=== PATIENT | female | born 1945 | race American Indian/Alaskan Native ===

== ENCOUNTER 2016-10-14 14:01 | Inpatient (IN) | payer BC, MEDICARE ==
[2016-10-14 14:01] VITALS: BMI 22.6
--- NOTE | 2016-10-14 14:26 | ED PDOC ---
HPI: Abdomen Time Seen by Provider: 10/14/16 14:11 Chief Complaint (Nursing): Abdominal Pain Chief Complaint (Provider): Abdominal Pain History Per: Patient History/Exam Limitations: no limitations Onset/Duration Of Symptoms: Days (x3) Current Symptoms Are (Timing): Still Present Quality Of Discomfort: Gas (In Abdomen) Associated Symptoms: Fever (subjetive), Back Pain, Chest Pain. denies: Chills, Nausea, Vomiting, Constipation Exacerbating Factors: denies: Cough Additional Complaint(s): 71 year old Claire Lyman presents to the ED with a chief complaint of chest pain that radiates to the abdomen and to the back that began 3 days ago. Associated symptoms include Abdominal gas, and a subjective fever. The patient admits to having lung cancer, and pelvic cancer as well as smoking since the age of 8 but denies any heart problems. The patient has had hip surgery and lung cancer surgery in the past and says the primary care physician is DR. arreguin. Past Medical History Reviewed: Historical Data, Nursing Documentation, Vital Signs Vital Signs: Last Vital Signs Temp 98.4 F 10/17/16 07:36 Pulse 79 10/17/16 07:36 Resp 20 10/17/16 07:36 BP 108/64 10/17/16 07:36 Pulse Ox 98 10/17/16 07:36 - Medical History PMH: Arthritis, Bronchitis, COPD, HTN, Malignancy (vaginal cancer, lung cancer) Denies: Diabetes, Hypercholesterolemia, Chronic Kidney Disease Other PMH: Lung cancer, "Pelvic cancer" - Surgical History Other surgeries: Lung cancer surgery, Hip surgery - Family History Family History: States: Unknown Family Hx - Social History Current smoker - smoking cessation education provided: Yes - Immunization History Hx Tetanus Toxoid Vaccination: No Hx Influenza Vaccination: No Hx Pneumococcal Vaccination: No - Home Medications Home Medications: Ambulatory Orders Medication Instructions Recorded Albuterol Sulfate [Proair Hfa] 0.09 mg IH Q4 PRN 07/27/16 Albuterol/Ipratropium [Duoneb 3 3 ml IH TID 07/27/16 mg/0.5 mg (3 ml) UD] oxyCODONE/Acetaminophen [Percocet 2 tab PO Q6 PRN #30 tab 08/03/16 5/325 mg Tab] - Allergies Allergies/Adverse Reactions: Allergies Allergy/AdvReac Type Severity Reaction Status Date / Time seasonal Allergy CONGESTION Uncoded 12/12/14 01:29 Review of Systems ROS Statement: Except As Marked, All Systems Reviewed And Found Negative Constitutional: Positive for: Fever (subjective) Eyes: Positive for: Vision Change ENT: Positive for: Other Cardiovascular: Positive for: Chest Pain Respiratory: Positive for: Sputum, Wheezing (expiatory ). Negative for: Shortness of Breath Gastrointestinal: Positive for: Abdominal Pain. Negative for: Nausea, Vomiting Genitourinary Female: Negative for: Hematuria, Vaginal Bleeding Musculoskeletal: Positive for: Back Pain Physical Exam - Reviewed Nursing Documentation Reviewed: Yes Vital Signs Reviewed: Yes - Physical Exam Appears: Positive for: Uncomfortable Skin: Positive for: Normal Color, Warm, Dry Eye Exam: Positive for: Normal appearance, EOMI, PERRL Neck: Positive for: Normal, Painless ROM, Supple Cardiovascular/Chest: Positive for: Regular Rate, Rhythm. Negative for: Chest Non Tender Respiratory: Positive for: Wheezing (Expiatory) Gastrointestinal/Abdominal: Positive for: Tenderness (Diffused) Back: Positive for: L CVA Tenderness (slighter on the left side), R CVA Tenderness Extremity: Positive for: Normal ROM Neurologic/Psych: Positive for: Alert, Oriented - Laboratory Results Result Diagrams: 10/17/16 06:25 10/17/16 06:25 - ECG O2 Sat by Pulse Oximetry: 98 (RA) Pulse Ox Interpretation: Normal Medical Decision Making Medical Decision Makin: Initial Impression:Abdominal pain with differentials of Flatulence and Constipation. Initial Plan: * Ekg * Lipase * Comp metabolic panel * Troponin I * ED U Dip * CBC with differentials * RAD * Dicyclomine Bentyl 20mg PO * Famotidine Pepcid 20 mg * Ketorolac Toradol 30mg * IV insertion * Re-Evaluation ~ Scribe Attestation: Documented by Leonard Pressley training under Steff Ferrer, acting as a scribe for Dr. Koenig. Provider Scribe Attestation: All medical record entries made by the Scribe were at my direction and personally dictated by me. I have reviewed the chart and agree that the record accurately reflects my personal performance of the history, physical exam, medical decision making, and the department course for this patient. I have also personally directed, reviewed, and agree with the discharge instructions and disposition. Disposition - Clinical Impression Clinical Impression: Cholecystitis - Patient ED Disposition Is Patient to be Admitted: Transfer of Care - Disposition Disposition: Transfer of Care Disposition Time: 15:00 Condition: STABLE Patient Signed Over To: Pat Cerrato Present On Arrival: None
[2016-10-14 15:26] LABS: BASO # 0.1 K/uL (0.0-0.2); BASO % 0.5 % (0.0-2.0); EOS % 0.2 % (0.0-4.0); LYMPH # 1.1 K/uL (1.0-4.3); LYMPH % 10.3 % (20.0-40.0); MEAN CELL VOLUME 92.1 fl (81.0-99.0); MEAN CORPUSCULAR HEMOGLOBIN 30.1 pg (27.0-31.0); MEAN CORPUSCULAR HGB CONC 32.7 g/dL (33.0-37.0); MEAN PLATELET VOLUME 9.2 fl (7.2-11.7); MONO % 9.4 % (0.0-10.0); NEUT # 8.7 K/uL (1.8-7.0); NEUT % 79.6 % (50.0-75.0); WHITE BLOOD COUNT 10.9 K/uL (4.8-10.8)
[2016-10-14 15:34] LABS: ALB/GLOB RATIO 1.2 (1.0-2.1); ALKALINE PHOSPHATASE 127 U/L (38-126); ALT/SGPT 45 U/L (9-52); AST/SGOT 18 U/L (14-36); BILIRUBIN,TOTAL 1.2 mg/dl (0.2-1.3); BLOOD UREA NITROGEN 6 mg/dl (7-17); CALCIUM 9.8 mg/dL (8.4-10.2); CARBON DIOXIDE 24 mmol/L (22-30); CHLORIDE 103 mmol/L (98-107); GFR AFRICAN-AMERICAN > 60; GLUCOSE,RANDOM 105 mg/dL (65-105); LIPASE 43 U/L (23-300); POTASSIUM 3.9 MMOL/L (3.6-5.0); SODIUM 142 mmol/l (132-148); TOTAL PROTEIN 7.4 G/DL (6.3-8.2)
--- NOTE | 2016-10-14 15:47 | RAD ---
PROCEDURE: Radiographs of the chest and abdomen (obstructive series) HISTORY: Abdominal bloating/pain for 3 days COMPARISON: No prior. TECHNIQUE: AP radiograph of the chest, with upright and supine radiographs of the abdomen. FINDINGS: CHEST: Lungs: The lungs are hyperinflated and there is peribronchial thickening with chronic changes in both lungs. There are fibrotic changes in the left upper lobe. . Cardiovascular: Normal size heart. No pulmonary vascular congestion. Pleura: No pleural fluid. No pneumothorax. Other findings: None. ABDOMEN AND PELVIS: Bowel: There are small air-fluid levels in the right lower quadrant. No evidence of bowel dilatation. Free air: None. Bones: Status post left hip arthroplasty. Other findings: There are multiple surgical clips in the lower abdomen and pelvis. IMPRESSION: COPD. Small air-fluid levels in the right lower quadrant could represent enteritis. No evidence of bowel obstruction.
[2016-10-14] MEDS ORDERED: Iohexol 240 (50 ml) PO STA (16:02)
--- NOTE | 2016-10-14 16:05 | ED PDOC ---
- Laboratory Results Result Diagrams: 10/15/16 06:05 10/15/16 06:05 - ECG O2 Sat by Pulse Oximetry: 98 (RA) Medical Decision Making Medical Decision Making: Time: 1500 Patient signed out by Dr. Koenig pending labs, Xray and re-evaluation Time: 1600 Plan: -- ED obs -- CT-abdomen Scribe Attestation: Documented by Steff Ferrer acting as a scribe for Pat Cerrato MD Provider Scribe Attestation: All medical record entries made by the Scribe were at my direction and personally dictated by me. I have reviewed the chart and agree that the record accurately reflects my personal performance of the history, physical exam, medical decision making, and the department course for this patient. I have also personally directed, reviewed, and agree with the discharge instructions and disposition. Disposition - Clinical Impression Clinical Impression: Cholecystitis - POA Present On Arrival: None - Disposition Disposition: Admitted as In-Patient Disposition Time: 19:57 Condition: STABLE ED OBSERVATION Date of observation admission: 10/14/16 Time of observation admission: 16:00 - Observation admission statement Patient is being placed in observation because:: Continued abdominal pain - Goals of Observation Goals of observation are:: Resolution of pain - Progress Note Progress Note: 10/14/16 18:[address] results. 10/14/16 19:29 CT AP IMPRESSION: Enterocolitis with ileus; gastric wall thickening, underdistention versus true thickening; distended gallbladder with pericholecystic fluid/edema suggest cholecystitis; prior granulomatous disease; hysterectomy 10/14/16 19:57 Spoke to Landen Chin, pt NPO after midnight.
[2016-10-14] MEDS ORDERED: Iohexol 240 (50 ml) ONE (16:30)
[2016-10-14] MEDS ORDERED: Sodium Chloride 0.9% 50 ML IV ONE (18:00)
[2016-10-14] MEDS ORDERED: Iohexol 300 100 ML IJ ONE (18:00)
--- NOTE | 2016-10-14 19:27 | CT ---
EXAM: CT Abdomen and Pelvis With Intravenous Contrast CLINICAL HISTORY: 71 years old, female; Pain; Abdominal pain; Generalized; Additional info: Gen abd pain, bloating TECHNIQUE: Axial computed tomography images of the abdomen and pelvis with intravenous contrast. This CT exam was performed using one or more of the following dose reduction techniques: automated exposure control, adjustment of the mA and/or kV according to patient size, and/or use of iterative reconstruction technique. Coronal and sagittal reformatted images were created and reviewed. CONTRAST: 95 mL of OMNI administered intravenously. EXAM DATE/TIME: 10/14/2016 4:02 PM COMPARISON: CR - HIP W/WO PELVIS MIN 4V LT 08/14/2015 12:12:14 PM FINDINGS: Lower thorax: There is normal. There is prominence of markings at the lung bases. There is a calcified granuloma in the right lower lobe. There is atelectasis and scarring at the lung base. There is a small hiatal hernia. ABDOMEN: Liver: There are granulomas in the liver. There is a 4.2 cm cyst in the right lobe of the liver Gallbladder and bile ducts: Gallbladder is distended centimeters in length. There is pericholecystic fluid/edema. Common bile duct is unremarkable. Pancreas: Pancreas is mildly atrophic. Spleen: unremarkable Adrenals: Right adrenal is unremarkable. There is a small left adrenal nodule. Kidneys and ureters: There is a left renal cyst. There is a low-attenuation right renal lesions too small to characterize. Kidneys and ureters are otherwise unremarkable. Stomach and bowel: Stomach is incompletely distended which accentuates the gastric wall.Bowel rotation is normal. There is mild jejunal wall thickening. There are mildly distended small bowel loops in the left abdomen. There is no obstruction. There is distal ileal wall thickening with adjacent inflammation.Appendix is unremarkable. There is moderate stool in the right colon. There is diffuse transverse colon wall thickening. Sigmoid is collapsed which limits evaluation. Appendix: See stomach and bowel PELVIS: Bladder: Bladder is almost empty. Reproductive: Uterus is absent. There are no adnexal masses. ABDOMEN and PELVIS: Intraperitoneal space: There is no free air. There is moderate free fluid in the cul-de-sac. Retroperitoneal space: There are multiple surgical clips in the retroperitoneum. Bones/joints: There is a left hip prosthesis with streak artifact. There is mild degenerative change in the spine and right hip Soft tissues: unremarkable Vasculature: There are vascular calcifications. Lymph nodes: There is shotty para-aortic adenopathy. IMPRESSION: Enterocolitis with ileus; gastric wall thickening, underdistention versus true thickening; distended gallbladder with pericholecystic fluid/edema suggest cholecystitis; prior granulomatous disease; hysterectomy Additional findings as described above.
[2016-10-14] MEDS ORDERED: Piperacillin/Tazobact 4.5 GM in Sodium Chloride 0.9% 100 ML IVPB STA (19:48)
[2016-10-14] MEDS ORDERED: Dextrose 5%/0.45% NS 1,000 ML IV SCH (23:00)
[2016-10-14] MEDS: Albuterol-Ipratrop 3 mg / 0.5 (3 ml) UD IH SCH (23:37)
[2016-10-15] MEDS: metroNIDAZOLE 500mg/100ml NS 100 ML IVPB SCH ×3 (00:23→10:06)
[2016-10-15] MEDS: Ciprofloxacin 400mg/200ml D5W 200 ML IVPB SCH ×2 (01:42→08:46)
[2016-10-15] MEDS: Albuterol-Ipratrop 3 mg / 0.5 (3 ml) UD IH SCH ×6 (04:12→23:44)
[2016-10-15] MEDS: Piperacillin/Tazobact 3.375 GM in Sodium Chloride 0.9% 100 ML IVPB SCH ×4 (04:19→22:58)
[2016-10-15 07:36] LABS: MEAN CELL VOLUME 92.4 fl (81.0-99.0); MEAN CORPUSCULAR HEMOGLOBIN 30.6 pg (27.0-31.0); MEAN CORPUSCULAR HGB CONC 33.1 g/dL (33.0-37.0); RED CELL DISTRIBUTION WIDTH 13.5 % (11.5-14.5); WHITE BLOOD COUNT 12.5 K/uL (4.8-10.8)
--- NOTE | 2016-10-15 07:38 | CARD ---
APPROVED REPORT EKG Measurement Heart [id number] <Conclusion> Normal sinus rhythm Normal ECG
[2016-10-15 07:40] LABS: ALB/GLOB RATIO 1.2 (1.0-2.1); ALKALINE PHOSPHATASE 120 U/L (38-126); ALT/SGPT 33 U/L (9-52); AMYLASE 80 U/L (30-110); AST/SGOT 18 U/L (14-36); BILIRUBIN,TOTAL 1.7 mg/dl (0.2-1.3); BLOOD UREA NITROGEN 9 mg/dl (7-17); CALCIUM 9.7 mg/dL (8.4-10.2); CARBON DIOXIDE 20 mmol/L (22-30); CHLORIDE 106 mmol/L (98-107); GFR AFRICAN-AMERICAN > 60; GLUCOSE,RANDOM 112 mg/dL (65-105); LIPASE 28 U/L (23-300); POTASSIUM 3.6 MMOL/L (3.6-5.0); SODIUM 143 mmol/l (132-148); TOTAL PROTEIN 7.3 G/DL (6.3-8.2)
--- NOTE | 2016-10-15 08:04 | CP.PCM.CON ---
<LennonLucy mason - Last Filed: 10/15/16 08:00> History of Present Illness - History of Present Illness History of Present Illness: General Surgery - Dr. Guzman 71yo F w/ hx of HTN, COPD, Lung Ca s/p Lobectomy, Pelvic Ca s/p Hysterectomy, and recent L hip replacement, who presents w/ RUQ abdominal pain x3 days. Pt states the pain started 3 days ago, describes it as located in the RUQ abdomen, radiating to the back, constant sharp/stabbing pain. Pt denies any inciting factors and nothing seemed to make the pain better or worse. Pt states this is the first time she's experienced this pain. She had mild nausea initially, no vomiting. Pt denies any Diarrhea, Constipation, Fevers/Chills, SOB/Chest pain, Dysuria, Hematuria. PMH: HTN, COPD, Lung Ca, Pelvic Ca PSH: Hysterectomy, Left lobectomy, L hip replacement Current Smoker NKDA Pt had CT abdomen pelvis which shows a distended GB with pericholecystic fluid and thickened wall, with additional signs of enterocolitis. Surgery was consulted to evaluate for cholecystitis. Past Patient History - Past Medical History & Family History Past Medical History?: Yes - Past Social History Smoking Status: Former Smoker - CARDIAC Hx Hypercholesterolemia: No Hx Hypertension: Yes - PULMONARY Hx Bronchitis: Yes Hx Chronic Obstructive Pulmonary Disease (COPD): Yes - NEUROLOGICAL Hx Neurological Disorder: No - HEENT Hx HEENT Problems: Yes (Rhinitis) - RENAL Hx Chronic Kidney Disease: No - ENDOCRINE/METABOLIC Hx Diabetes Mellitus Type 2: No - HEMATOLOGICAL/ONCOLOGICAL Hx Blood Disorders: Yes - INTEGUMENTARY Hx Dermatological Problems: No - MUSCULOSKELETAL/RHEUMATOLOGICAL Hx Falls: No - GASTROINTESTINAL Hx Gastrointestinal Disorders: Yes Hx Gastroesophageal Reflux: Yes - GENITOURINARY/GYNECOLOGICAL Hx Genitourinary Disorders: Yes Hx Ovarian Cancer: Yes - PSYCHIATRIC Hx Substance Use: No - SURGICAL HISTORY Hx Surgeries: Yes Hx Abdominal Aortic Aneurysm Repair: No Hx Hysterectomy: Yes Hx Pulmonary Surgery: Yes (left lungs sx removed) - ANESTHESIA Hx Anesthesia: Yes Hx Anesthesia Reactions: No Hx Malignant Hyperthermia: No Meds Allergies/Adverse Reactions: Allergies Allergy/AdvReac Type Severity Reaction Status Date / Time seasonal Allergy CONGESTION Uncoded 12/12/14 01:29 - Medications Medications: Current Medications Albuterol/Ipratropium (Duoneb 3 Mg/0.5 Mg (3 Ml) Ud) 3 ml IH RQ4 [facility] Last Admin: 10/15/16 04:12 Dose: 3 ml Hydromorphone HCl (Dilaudid) 0.5 mg IVP Q3H PRN PRN Reason: Pain, moderate (4-7) Ciprofloxacin (Cipro 400mg/200ml Dsw) 200 mls @ 200 mls/hr IVPB Q12 [facility] Last Admin: 10/15/16 01:42 Dose: 200 mls/hr Dextrose/Sodium Chloride (Dextrose 5%/0.45% Ns 1000 Ml) 1,000 mls @ 80 mls/hr IV .[id number] [facility] Stop: 10/15/16 23:01 Last Admin: 10/14/16 23:39 Dose: 80 mls/hr Metronidazole (Flagyl 500mg/100ml Ns) 100 mls @ 100 mls/hr IVPB Q8 [facility] Last Admin: 10/15/16 00:23 Dose: 100 mls/hr Piperacillin Sod/Tazobactam (Sod 3.375 gm/ Sodium Chloride) 100 mls @ 100 mls/ hr IVPB Q6 [facility] Last Admin: 10/15/16 04:19 Dose: 100 mls/hr Ondansetron HCl (Zofran Inj) 4 mg IVP Q4 PRN PRN Reason: Nausea/Vomiting Physical Exam - Constitutional Appears: No Acute Distress - Head Exam Head Exam: ATRAUMATIC, NORMAL INSPECTION, NORMOCEPHALIC - Eye Exam Eye Exam: Normal appearance - Respiratory Exam Respiratory Exam: NORMAL BREATHING PATTERN. absent: Respiratory Distress - GI/Abdominal Exam GI & Abdominal Exam: Distended (mild), Guarding, Soft, Tenderness (RUQ). absent : Firm, Rebound, Rigid - Neurological Exam Neurological exam: Alert, Oriented x3 - Psychiatric Exam Psychiatric exam: Normal Affect, Normal Mood - Skin Skin Exam: Dry, Intact Results - Vital Signs Recent Vital Signs: Last Vital Signs Temp 98.6 F 10/15/16 07:37 Pulse 88 10/15/16 07:37 Resp 18 10/15/16 07:37 BP 118/71 10/15/16 07:37 Pulse Ox 100 10/15/16 07:37 - Labs Result Diagrams: 10/15/16 06:05 10/15/16 06:05 Labs: Laboratory Results - last 24 hr 10/14/16 10/15/16 15:18 06:05 WBC 10.9 H 12.5 H RBC 4.45 4.22 Hgb 13.4 12.9 Hct 41.0 39.0 MCV 92.1 D 92.4 MCH 30.1 30.6 MCHC 32.7 L 33.1 RDW 14.0 13.5 Plt Count 199 194 MPV 9.2 Neut % (Auto) 79.6 H Lymph % (Auto) 10.3 L [place] % (Auto) 9.4 Eos % (Auto) 0.2 Baso % (Auto) 0.5 Neut # 8.7 H Lymph # 1.1 [place] # 1.0 H Eos # 0.0 Baso # 0.1 PT 11.7 H INR 1.13 H APTT 32.0 Sodium 142 143 Potassium 3.9 3.6 Chloride 103 106 Carbon Dioxide 24 20 L Anion Gap 19 21 H BUN 6 L 9 Creatinine 0.7 0.9 Est GFR ( Amer) > 60 > 60 Est GFR (Non-Af Amer) > 60 > 60 Random Glucose 105 112 H Calcium 9.8 9.7 Total Bilirubin 1.2 1.7 H AST 18 18 ALT 45 33 Alkaline Phosphatase 127 H D 120 Troponin I < 0.0120 Total Protein 7.4 7.3 Albumin 4.1 3.9 Globulin 3.3 3.4 Albumin/Globulin Ratio 1.2 1.2 Amylase 80 Lipase 43 28 - Imaging and Cardiology CT scan - abdomen Status: Image reviewed by me, Report reviewed by me Assessment & Plan - Assessment and Plan (Free Text) Assessment: 71 yo F w/ hx Lung and pelvic ca, COPD, here with persistent RUQ pain and CT findings suggestive of cholecystitis -F/U Abdominal U/S -Maintain NPO, IVF -IV Abx -Pain control -May need cholecystectomy this admission D/W Dr. Megan Lennon PGY2 <Derrick Guzman - Last Filed: 10/15/16 10:17> History of Present Illness - History of Present Illness History of Present Illness: Patient was seen and examined at the bedside. Agree with resident's note above. Meds - Medications Medications: Current Medications Albuterol/Ipratropium (Duoneb 3 Mg/0.5 Mg (3 Ml) Ud) 3 ml IH RQ4 [facility] Last Admin: 10/15/16 04:12 Dose: 3 ml Hydromorphone HCl (Dilaudid) 0.5 mg IVP Q3H PRN PRN Reason: Pain, moderate (4-7) Last Admin: 10/15/16 09:50 Dose: 0.5 mg Piperacillin Sod/Tazobactam (Sod 3.375 gm/ Sodium Chloride) 100 mls @ 100 mls/ hr IVPB Q6 [facility] Last Admin: 10/15/16 10:08 Dose: 100 mls/hr Sodium Chloride (Sodium Chloride 0.9%) 1,000 mls @ 125 mls/hr IV .Q8H [facility] Stop: 10/16/16 10:16 Last Admin: 10/15/16 10:15 Dose: 125 mls/hr Ondansetron HCl (Zofran Inj) 4 mg IVP Q4 PRN PRN Reason: Nausea/Vomiting Pantoprazole Sodium (Protonix Inj) 40 mg IVP DAILY [facility] Results - Vital Signs Recent Vital Signs: Last Vital Signs Temp 98.6 F 10/15/16 07:37 Pulse 88 10/15/16 07:37 Resp 18 10/15/16 07:37 BP 118/71 10/15/16 07:37 Pulse Ox 100 10/15/16 07:37 - Labs Result Diagrams: 10/15/16 06:05 10/15/16 06:05 Labs: Laboratory Results - last 24 hr 10/14/16 10/15/16 15:18 06:05 WBC 10.9 H 12.5 H RBC 4.45 4.22 Hgb 13.4 12.9 Hct 41.0 39.0 MCV 92.1 D 92.4 MCH 30.1 30.6 MCHC 32.7 L 33.1 RDW 14.0 13.5 Plt Count 199 194 MPV 9.2 Neut % (Auto) 79.6 H Lymph % (Auto) 10.3 L [place] % (Auto) 9.4 Eos % (Auto) 0.2 Baso % (Auto) 0.5 Neut # 8.7 H Lymph # 1.1 [place] # 1.0 H Eos # 0.0 Baso # 0.1 PT 11.7 H INR 1.13 H APTT 32.0 Sodium 142 143 Potassium 3.9 3.6 Chloride 103 106 Carbon Dioxide 24 20 L Anion Gap 19 21 H BUN 6 L 9 Creatinine 0.7 0.9 Est GFR ( Amer) > 60 > 60 Est GFR (Non-Af Amer) > 60 > 60 Random Glucose 105 112 H Calcium 9.8 9.7 Total Bilirubin 1.2 1.7 H AST 18 18 ALT 45 33 Alkaline Phosphatase 127 H D 120 Troponin I < 0.0120 Total Protein 7.4 7.3 Albumin 4.1 3.9 Globulin 3.3 3.4 Albumin/Globulin Ratio 1.2 1.2 Amylase 80 Lipase 43 28 Assessment & Plan - Assessment and Plan (Free Text) Assessment: 71 y.o. female with cholecystitis Plan: - Keep NPO - IV fluids to 15 ml/hr - Continue antibiotics - Pain control - Plan for cholecystectomy tomorrow
--- NOTE | 2016-10-15 08:36 | US ---
HISTORY: Abdominal pain, right upper quadrant pain. Cholecystitis suspected COMPARISON: October 14, 2016. CT abdomen and pelvis. Summary of findings on the comparison examination: Distended gallbladder with pericholecystic fluid suggest cholecystitis. TECHNIQUE: Sonographic evaluation of the abdomen. FINDINGS: LIVER: Measures 15.5 cm. Patent portal vein. Portal venous flow: Hepatopetal. Unremarkeable echogenicity of the liver parenchyma. No mass. No intrahepatic bile duct dilatation.Incidental finding(s): Cyst right hepatic lobe 4 cm. GALLBLADDER: Distended gallbladder, gallbladder wall thickening. Gallstones identified. Positive sonographic Menendez's sign. Pericholecystic fluid noted. COMMON BILE DUCT: Measures 4.7 mm. No stones. No dilatation. PANCREAS: Obscured by overlying bowel gas. Non diagnostic assessment of the pancreas. 9.8 x 5.2cm. Normal echogenicity. No calculus, mass, or hydronephrosis. LEFT KIDNEY: Measures 4.6 x 11.2cm. Normal echogenicity. No calculus, mass, or hydronephrosis.Incidental finding(s): Upper pole cyst 2.4 cm. SPLEEN: Normal in size and contour. No mass. AORTA: No aneurysmal dilatation. IVC: Unremarkable. OTHER FINDINGS: None. IMPRESSION: Cholelithiasis/sonographic findings indicative of acute cholecystitis.
--- NOTE | 2016-10-15 09:11 | RAD ---
HISTORY: Preop. COMPARISON: 07/31/2016 and 07/27/2016. Serial chest radiographs. 08/26/2013 CT thorax TECHNIQUE: Chest PA and lateral FINDINGS: LUNGS: Stable left upper lobe scarring. Findings are primarily peripheral based. PLEURA: No significant pleural effusion identified. No pneumothorax apparent. CARDIOVASCULAR: No radiographic findings to suggest acute or significant cardiovascular disease. OSSEOUS STRUCTURES: No significant abnormalities. VISUALIZED UPPER ABDOMEN: Normal. OTHER FINDINGS: None. IMPRESSION: No active disease. No significant interval change compared to the prior examination(s). This includes serial chest radiographs and CT of the thorax performed 08/26/2013.
[2016-10-15] MEDS: Sodium Chloride 0.9% 1,000 ML IV SCH ×7 (10:15→13:32)
[2016-10-15] MEDS: methylPREDNISolone 40 MG in Sodium Chloride 0.9% 50 ML IVPB SCH ×3 (13:45→21:39)
--- NOTE | 2016-10-15 14:52 | CP.PCM.HP ---
History of Present Illness - History of Present Illness History of Present Illness: CC: Abdominal pain. 71 y/o F, brought to ER [facility] by EMS due to Abdominal pain, onset 2-3 days SCALEMAKER with no relief. Pt came c/o of Abdominal pain RUQ, constant, stabbing, severe intensity of 9:10 , radiated to R back and lower extremity, associated to nausea and vomiting x 3 days SCALEMAKER. Worsening symptom: BM 2 weeks ago with small amount of bright Red color. Worsening factor: Poor po intake, lack of appetite. Pt denied: Diarrhea, fever, chills, urinary symptoms, CP, SOB, syncope, dizziness, sick contact, recent travel. PMHx: Chronic L hip, R-L knee, L-S pain. Hx of Lung Ca (MARIBELL Lobectomy Tx with Radiation and Chemo), Hx of Ovarian CA s/p ANGELO-BSO, s/p L Hip Arthroplasty , COPD 2nd to heavy smoker, O/A. EKG shows: Normal sinus rhythm. OB Series: No evidence of Lower obstruction, COPD. CT Abd/Pelv= Suggestive x Cholecystitis. Abdominal U-S showed Acute Cholecystitis. Present on Admission - Present on Admission Any Indicators Present on Admission: No Review of Systems - Constitutional Constitutional: Weakness - EENT Eyes: Other (negative) Ears: Other (negative) Nose/Mouth/Throat: Other (negative) - Cardiovascular Cardiovascular: Other (negative) - Respiratory Respiratory: Other (negative) - Gastrointestinal Gastrointestinal: Abdominal Pain, Nausea, Vomiting - Genitourinary Genitourinary: Other (negative) - Musculoskeletal Musculoskeletal: Arthralgias, Back Pain, Radiating Pain into Limb - Integumentary Integumentary: Other (negative) - Neurological Neurological: Other (negative) - Psychiatric Psychiatric: Other (negative) - Endocrine Endocrine: Other (negative) Past Patient History - Past Medical History & Family History Past Medical History?: Yes Pertinent Family History: Unknown - Past Social History Smoking Status: Former Smoker Alcohol: None Drugs: Denies Home Situation {Lives}: With Family - CARDIAC Hx Cardiac Disorders: No Hx Hypercholesterolemia: No Hx Hypertension: Yes - PULMONARY Hx Respiratory Disorders: Yes Hx Bronchitis: Yes Hx Chronic Obstructive Pulmonary Disease (COPD): Yes Hx Lung Cancer: Yes (MARIBELL) - NEUROLOGICAL Hx Neurological Disorder: No - HEENT Hx HEENT Problems: Yes (Rhinitis) - RENAL Hx Chronic Kidney Disease: No - ENDOCRINE/METABOLIC Hx Endocrine Disorders: No Hx Diabetes Mellitus Type 2: No - HEMATOLOGICAL/ONCOLOGICAL Hx Blood Disorders: Yes - INTEGUMENTARY Hx Dermatological Problems: No - MUSCULOSKELETAL/RHEUMATOLOGICAL Hx Musculoskeletal Disorders: Yes Hx Arthritis: Yes Hx Back Pain: Yes Hx Falls: No Hx Osteoarthritis: Yes - GASTROINTESTINAL Hx Gastrointestinal Disorders: Yes Hx Gastroesophageal Reflux: Yes - GENITOURINARY/GYNECOLOGICAL Hx Genitourinary Disorders: Yes Hx Ovarian Cancer: Yes - PSYCHIATRIC Hx Substance Use: No - SURGICAL HISTORY Hx Surgeries: Yes Hx Abdominal Aortic Aneurysm Repair: No Hx Hysterectomy: Yes Hx Pulmonary Surgery: Yes (left lungs sx removed) - ANESTHESIA Hx Anesthesia: Yes Hx Anesthesia Reactions: No Hx Malignant Hyperthermia: No Meds Allergies/Adverse Reactions: Allergies Allergy/AdvReac Type Severity Reaction Status Date / Time seasonal Allergy CONGESTION Uncoded 12/12/14 01:29 Physical Exam - Constitutional Appears: No Acute Distress, Chronically Ill - Head Exam Head Exam: NORMAL INSPECTION - Eye Exam Eye Exam: PERRL - ENT Exam ENT Exam: Normal Oropharynx - Neck Exam Neck exam: Positive for: Normal Inspection - Respiratory Exam Respiratory Exam: Decreased Breath Sounds (at bases) Additional comments: L thoracotomy healed scar - Cardiovascular Exam Cardiovascular Exam: REGULAR RHYTHM - GI/Abdominal Exam GI & Abdominal Exam: Guarding (LUQ), Normal Bowel Sounds, Tenderness (LUQ). absent: Rebound Additional comments: Healed lower midline surgical scar - Extremities Exam Extremities exam: Positive for: normal inspection. Negative for: pedal edema Additional comments: Healed L Hip surgical scar - Back Exam Back exam: tenderness (L-S) - Neurological Exam Neurological exam: Alert, Oriented x3 Additional comments: No motor sensory deficit. - Psychiatric Exam Psychiatric exam: Normal Mood - Skin Skin Exam: Warm Results - Vital Signs Recent Vital Signs: Last Vital Signs Temp 98.6 F 10/15/16 07:37 Pulse 88 10/15/16 07:37 Resp 18 10/15/16 07:37 BP 118/71 10/15/16 07:37 Pulse Ox 98 10/15/16 14:32 reviewed Domingo - Labs Result Diagrams: 10/15/16 06:05 10/15/16 06:05 Labs: Laboratory Results - last 24 hr 10/14/16 10/15/16 15:18 06:05 WBC 10.9 H 12.5 H RBC 4.45 4.22 Hgb 13.4 12.9 Hct 41.0 39.0 MCV 92.1 D 92.4 MCH 30.1 30.6 MCHC 32.7 L 33.1 RDW 14.0 13.5 Plt Count 199 194 MPV 9.2 Neut % (Auto) 79.6 H Lymph % (Auto) 10.3 L [place] % (Auto) 9.4 Eos % (Auto) 0.2 Baso % (Auto) 0.5 Neut # 8.7 H Lymph # 1.1 [place] # 1.0 H Eos # 0.0 Baso # 0.1 PT 11.7 H INR 1.13 H APTT 32.0 Sodium 142 143 Potassium 3.9 3.6 Chloride 103 106 Carbon Dioxide 24 20 L Anion Gap 19 21 H BUN 6 L 9 Creatinine 0.7 0.9 Est GFR ( Amer) > 60 > 60 Est GFR (Non-Af Amer) > 60 > 60 Random Glucose 105 112 H Calcium 9.8 9.7 Total Bilirubin 1.2 1.7 H AST 18 18 ALT 45 33 Alkaline Phosphatase 127 H D 120 Troponin I < 0.0120 Total Protein 7.4 7.3 Albumin 4.1 3.9 Globulin 3.3 3.4 Albumin/Globulin Ratio 1.2 1.2 Amylase 80 Lipase 43 28 reviewed J.P. - EKG Data EKG comments: reviewed J.P. - Impressions Impression: Abd. CLAYTON Eli Reviewed J.P. - Imaging and Cardiology Chest x-ray Status: Report reviewed by me (J.P.) CT scan - abdomen Status: Report reviewed by me (J.P.) CT scan - pelvis Status: Report reviewed by me (J.P.) US - abdomen Status: Report reviewed by me (J.P.) Assessment & Plan (1) Acute cholecystitis Status: Acute Priority: High (2) Hx of cancer of lung Status: Chronic Priority: High (3) COPD (chronic obstructive pulmonary disease) Status: Chronic Priority: Medium (4) Chronic lumbar radiculopathy Status: Chronic Priority: High - Assessment and Plan (Free Text) Plan: F/U Chest CT. Continue Zosyn IV, Dilaudid, Duoneb, Solumedrol and rest of Tx. Surgery consult appreciated, Cardiology consult. For Cholecystectomy tomorrow. - Date & Time Date: 10/15/16 Time: 11:40
[2016-10-16] MEDS: Sodium Chloride 0.9% 1,000 ML IV SCH ×2 (02:15→08:49)
[2016-10-16] MEDS: methylPREDNISolone 40 MG in Sodium Chloride 0.9% 50 ML IVPB SCH ×5 (03:18→21:32)
[2016-10-16] MEDS: Albuterol-Ipratrop 3 mg / 0.5 (3 ml) UD IH SCH ×5 (03:46→20:06)
[2016-10-16] MEDS: Piperacillin/Tazobact 3.375 GM in Sodium Chloride 0.9% 100 ML IVPB SCH ×4 (03:55→22:15)
--- NOTE | 2016-10-16 08:22 | CARD ---
APPROVED REPORT EXAM: Two-dimensional and M-mode echocardiogram with Doppler and color Doppler. Other Information Quality : GoodRhythm : NSR INDICATION Pre-Op 2D DIMENSIONS IVSd1.17 (0.7-1.1cm)LVDd3.15 (3.9-5.9cm) LVOT Diameter1.72 (1.8-2.4cm)PWd1.35 (0.7-1.1cm) IVSs1.32 (0.8-1.2cm)LVDs3.31 (2.5-4.0cm) FS (%) 5.1 %PWs0.96 (0.8-1.2cm) M-Mode DIMENSIONS Left Atrium (MM)3.13 (2.5-4.0cm)IVSd1.19 (0.7-1.1cm) Aortic Root3.11 (2.2-3.7cm)LVDd4.42 (4.0-5.6cm) Aortic Cusp Exc.2.17 (1.5-2.0cm)PWd0.84 (0.7-1.1cm) IVSs1.48 cmFS (%) 39 % LVDs2.68 (2.0-3.8cm)PWs1.08 cm Mitral Valve MV E Hrzibizp79.2cm/sMV DECEL [id number] A Ptkarale07.3cm/s MV QCA61ciD/A ratio1.0MVA (PHT)4.11cm2 TDI Lateral E' Peak V11.65cm/sMedial E' Peak V8.96cm/sE/Lateral E'6.6 E/Medial E'8.6 Pulmonary Valve PV Peak Ydvompbz579.6cm/s Tricuspid Valve TR Peak Vxpjswlj322et/sRAP CBCFQGAM92gbTuRN Peak Gr.28mmHg [id number] LEFT VENTRICLE The left ventricle is normal size. There is normal left ventricular wall thickness. Left ventricle systolic function is normal. The Ejection Fraction is 65-70%. There is normal LV segmental wall motion. Transmitral Doppler flow pattern is Grade I-abnormal relaxation pattern. RIGHT VENTRICLE The right ventricle is normal size. There is normal right ventricular wall thickness. The right ventricular systolic function is normal. ATRIA The left atrium size is normal. The right atrium size is normal. AORTIC VALVE The aortic valve is normal in structure and function. No aortic regurgitation is present. There is no aortic valvular stenosis. MITRAL VALVE The mitral valve is normal in structure. There is no evidence of mitral valve prolapse. There is no mitral valve stenosis. Mitral regurgitation is trace. TRICUSPID VALVE The tricuspid valve is normal in structure. There is mild to moderate tricuspid regurgitation. Right ventricular systolic pressure is estimated at 38 mmHg. There is mild-moderate pulmonary hypertension. PULMONIC VALVE The pulmonary valve is normal in structure and function. There is no pulmonic valvular regurgitation. GREAT VESSELS The aortic root is normal in size. Due to poor image quality, the IVC could not be assessed. PERICARDIAL EFFUSION The pericardium appears normal. <Conclusion> The left ventricle is normal size. There is normal left ventricular wall thickness. There is normal LV segmental wall motion. Left ventricle systolic function is normal. The Ejection Fraction is 65-70%. Transmitral Doppler flow pattern is Grade I-abnormal relaxation pattern. There is mild to moderate tricuspid regurgitation. Right ventricular systolic pressure is estimated at 38 mmHg. There is mild-moderate pulmonary hypertension.
--- NOTE | 2016-10-16 09:13 | CP.PCM.CON ---
History of Present Illness - History of Present Illness History of Present Illness: Full Note Dictated Cholecystitis Chr cigarette use H/ O Ca Lung (Post lobectomy, ? in remission) S/ P Hysterectomy S/ P Lt hip replacement Reviewed EKG and Echo Stable to preceed with Sx Past Patient History - Past Medical History & Family History Past Medical History?: Yes - Past Social History Smoking Status: Former Smoker Alcohol: None Drugs: Denies Home Situation {Lives}: With Family - CARDIAC Hx Cardiac Disorders: No Hx Hypercholesterolemia: No Hx Hypertension: Yes - PULMONARY Hx Respiratory Disorders: Yes Hx Bronchitis: Yes Hx Chronic Obstructive Pulmonary Disease (COPD): Yes Hx Lung Cancer: Yes (MARIBELL) - NEUROLOGICAL Hx Neurological Disorder: No - HEENT Hx HEENT Problems: Yes (Rhinitis) - RENAL Hx Chronic Kidney Disease: No - ENDOCRINE/METABOLIC Hx Endocrine Disorders: No Hx Diabetes Mellitus Type 2: No - HEMATOLOGICAL/ONCOLOGICAL Hx Blood Disorders: Yes - INTEGUMENTARY Hx Dermatological Problems: No - MUSCULOSKELETAL/RHEUMATOLOGICAL Hx Musculoskeletal Disorders: Yes Hx Arthritis: Yes Hx Back Pain: Yes Hx Falls: No Hx Osteoarthritis: Yes - GASTROINTESTINAL Hx Gastrointestinal Disorders: Yes Hx Gastroesophageal Reflux: Yes - GENITOURINARY/GYNECOLOGICAL Hx Genitourinary Disorders: Yes Hx Ovarian Cancer: Yes - PSYCHIATRIC Hx Substance Use: No - SURGICAL HISTORY Hx Surgeries: Yes Hx Abdominal Aortic Aneurysm Repair: No Hx Hysterectomy: Yes Hx Pulmonary Surgery: Yes (left lungs sx removed) - ANESTHESIA Hx Anesthesia: Yes Hx Anesthesia Reactions: No Hx Malignant Hyperthermia: No Meds Allergies/Adverse Reactions: Allergies Allergy/AdvReac Type Severity Reaction Status Date / Time seasonal Allergy CONGESTION Uncoded 12/12/14 01:29 - Medications Medications: Current Medications Albuterol/Ipratropium (Duoneb 3 Mg/0.5 Mg (3 Ml) Ud) 3 ml IH RQ4 ALEXEY Last Admin: 10/16/16 07:55 Dose: 3 ml Hydromorphone HCl (Dilaudid) 0.5 mg IVP Q3H PRN PRN Reason: Pain, moderate (4-7) Last Admin: 10/15/16 20:42 Dose: 0.5 mg Piperacillin Sod/Tazobactam (Sod 3.375 gm/ Sodium Chloride) 100 mls @ 100 mls/ hr IVPB Q6 ALEXEY Last Admin: 10/16/16 03:55 Dose: 100 mls/hr Sodium Chloride (Sodium Chloride 0.9%) 1,000 mls @ 125 mls/hr IV .Q8H [facility] Stop: 10/16/16 10:16 Last Admin: 10/16/16 08:49 Dose: 125 mls/hr Sodium Chloride (Sodium Chloride 0.9%) 1,000 mls @ 1,000 mls/hr IV .Q1H [facility] Stop: 10/16/16 10:31 Last Admin: 10/15/16 13:32 Dose: Not Given Methylprednisolone 40 mg/ (Sodium Chloride) 50 mls @ 100 mls/hr IVPB Q6 [facility] Last Admin: 10/16/16 03:18 Dose: 100 mls/hr Ondansetron HCl (Zofran Inj) 4 mg IVP Q4 PRN PRN Reason: Nausea/Vomiting Last Admin: 10/16/16 08:53 Dose: 4 mg Pantoprazole Sodium (Protonix Inj) 40 mg IVP DAILY [facility] Last Admin: 10/16/16 08:33 Dose: 40 mg Results - Vital Signs Recent Vital Signs: Last Vital Signs Temp 98.1 F 10/16/16 07:41 Pulse 91 H 10/16/16 07:41 Resp 18 10/16/16 07:41 BP 101/61 10/16/16 07:41 Pulse Ox 98 10/16/16 07:41 - Labs Result Diagrams: 10/15/16 06:05 10/15/16 06:05
[2016-10-16 09:23] LABS: ABG ALLEN TEST YES; ARTERIAL BLOOD GAS HCO3 22.2 mmol/L (21-28); ARTERIAL BLOOD GAS O2 CAPACITY 15.3 mL/dL (16-24); ARTERIAL BLOOD GAS PH 7.46 (7.35-7.45); ARTERIAL BLOOD GAS PO2 75 mm/Hg (80-100); ARTERIAL BLOOD HGB O2 SAT 94.9 % (95.0-98.0); CARBOXYHEMOGLOBIN 1.9 % (0.5-1.5); HHB 1.6 % (0.0-5.0); METHEMOGLOBIN 1.6 % (0.0-3.0)
--- NOTE | 2016-10-16 10:55 | CON ---
DATE: 10/16/2016 She is hospitalized under Dr. Levy's care in room 669, bed 1. HISTORY OF PRESENT ILLNESS: This 71-year-old -[place] female came into the hospital complain ing of severe right upper quadrant pain with severe anorexia, vomiting, and is hospitalized for екатерина cystectomy. She gives history of smoking for 45-50 years and has had a lobectomy on the left side fo r carcinoma of the lung by her account. There is no recurrence. She also gives history of having re quired hysterectomy which she underwent for an uncertain cause. She has had a left hip replaced as w ell. She denies any history of hypertension or diabetes. Both of her parents were smokers and of lung related diseases. She indicates that she has attempted to quit smoking, but has not been abl e to. Denies effort related shortness of breath and can walk approximately 8-9 blocks using her cane without any difficulty. Denies any history of chest pain, myocardial infarction or congestive cardi ac failure. PHYSICAL EXAMINATION: GENERAL: Shows a middle-aged -[place] female. VITAL SIGNS: Afebrile lying comfortably in bed with a heart rate of 76 beats per minute, regular, an d a blood pressure of 110/70 mmHg. NECK: Her jugular venous pressure was not elevated. There were no carotid bruits. Thyroid and shant sts did not reveal anything abnormal. HEART: The apex was not palpable. The first and second heart sounds were normal. There was no murm ur, no gallop. LUNGS: No rales. Scar of left lobectomy was evident. ABDOMEN: Soft. There was no guarding or rigidity. There was a vague sense of tenderness in the rig ht upper quadrant. No mass was palpable. EXTREMITIES: There was no edema over lower extremity. The pedal pulses were well felt. A scar of le ft hip surgery was evident. Her electrocardiogram showed sinus rhythm with a normal EKG pattern. Her echocardiogram showed prese rved left ventricular systolic function with no significant valvulopathy. LABORATORY DATA: Showed a hemoglobin and hematocrit of 13.4 g and 41.0% respectively. A mild degree of leukocytosis was evident. Her platelet count was normal. Her BUN and creatinine were 9 and 0.9 mg%. Her potassium was normal. IMPRESSION: At this time is acute cholecystitis in a patient with chronic cigarette use. No overt e vidence of COPD. The patient appears to have good effort tolerance, status post lobectomy for carcin toi of the lung, status post hysterectomy. She is medically stable to proceed with the planned surge ry. Aaron Fermin MD cc: [id number] TT: 10/16/2016 10:54:49 Confirmation # [id number] Dictation # [id number] rn
--- NOTE | 2016-10-16 11:58 | CT ---
PROCEDURE: CT Chest without contrast HISTORY: Hx lung ca COMPARISON: Comparison is made to the previous CT dated 07/27/2016 TECHNIQUE: Contiguous axial images were obtained through the chest without intravenous contrast enhancement. Sagittal and coronal reconstructions were performed. Radiation dose (DLP): 278.44 mGy-cm. This CT exam was performed using one or more of the following dose reduction techniques: Automated exposure control, adjustment of the mA and/or kV according to patient size, and/or use of iterative reconstruction technique. FINDINGS: LUNGS: Re- demonstration of focal opacity at the left upper chest which has not significantly changed since the previous exam. No evidence of new infiltrate or consolidation in the lungs. Re- demonstration of reticular opacities at the left lung and small peripheral cystic formation at the anterior peripheral left lung likely represent post treatment changes. Re- demonstration of lrym-cu-dmqxvdhy emphysematous changes. Small focal opacity and reticular densities seen at the peripheral right lower lobe likely atelectasis or scar tissue. MEDIASTINUM: The thoracic aorta is ectatic and tortuous. The ascending thoracic aorta measures 3.8 centimeter in the transverse diameter. Normal sized heart. The main pulmonary artery is mildly enlarged. No lymphadenopathy. PLEURA: No pleural fluid. No pneumothorax. BONES: No fracture. No destructive lesion. UPPER ABDOMEN: There is diffuse thickening of the gallbladder wall noted. Correlate clinically for possible cholecystitis. Re- demonstration of cystic lesion at the right liver lobe. OTHER FINDINGS: None. IMPRESSION: Stable focal opacity at the upper portion of the left chest. Stable small reticular opacities in the left lung likely post treatment changes. Small opacities at the peripheral right lower lobe likely atelectasis or scar tissue. Moderate gallbladder wall thickening again noted. Correlate clinically for cholecystitis. If indicated further assessment by ultrasound may be obtained.
[2016-10-16] MEDS ORDERED: Propofol 10 mg/ml Inj (20 ML) ONE (12:24)
[2016-10-16] MEDS ORDERED: Midazolam 2 MG/2 ML VIAL ONE (12:25)
[2016-10-16] MEDS ORDERED: Lidocaine 2% MPF (5 ml) Inj ONE (12:26)
[2016-10-16] MEDS ORDERED: Rocuronium 10 mg/ml (5 ml) ONE (12:26)
[2016-10-16] MEDS ORDERED: Succinylcholine 200 mg/10 ml Inj IV ONE (12:26)
[2016-10-16] MEDS ORDERED: Sodium Chloride 0.9% 500 ML IV ONE (12:35)
[2016-10-16] MEDS ORDERED: Bupivacaine 0.5% Inj(30mL) ONE (12:41)
[2016-10-16] MEDS ORDERED: Neostigmine Methylsulfate 3mg/3ml Syringe IV ONE (13:22)
[2016-10-16] MEDS ORDERED: Bupivacaine 0.5% 50 ML IJ ONE ×2 (13:23→14:15)
[2016-10-16] MEDS ORDERED: Lactated Ringer's 1,000 ML IV ONE ×2 (13:27→14:30)
[2016-10-16] MEDS ORDERED: Lactated Ringer's 500 ML IV ONE (14:12)
[2016-10-16] MEDS ORDERED: Sodium Chloride 0.9% 1,000 ML IV ONE ×3 (14:13→14:15)
[2016-10-16] MEDS ORDERED: Lactated Ringer's 1,000 ML IV SCH (14:19)
[2016-10-16] MEDS ORDERED: Oxycodone/Acetaminophen 5/325 mg Tab PO PRN (14:19)
--- NOTE | 2016-10-16 14:23 | PCM.SURG1 ---
Surgeon's Initial Post Op Note - Surgeon's Notes Surgeon: Megan Fruit Farmer: Burgess Bennett Fitzgerald Type of Anesthesia: General Endo Anesthesia Administered By: General Pre-Operative Diagnosis: Acute cholecystitis Operative Findings: Acute cholecystitis Post-Operative Diagnosis: Same Operation Performed: Laparoscopic cholecystectomy Specimen/Specimens Removed: Gallbladder with stones Estimated Blood Loss: EBL {In ML}: 50 Blood Products Given: N/A Drains Used: No Drains Post-Op Condition: Good Date of Surgery/Procedure: 10/16/16 Time of Surgery/Procedure: 12:45
[2016-10-16] MEDS ORDERED: HYDROmorphone 0.5 mg/0.5 ml ISec IVP PRN ×2 (14:34→15:00)
[2016-10-16] MEDS ORDERED: HYDROmorphone 0.5 mg/0.5 ml ISec IVP ONE (15:15)
--- NOTE | 2016-10-16 15:21 | OP ---
PROCEDURE DATE: 10/16/2016 PREOPERATIVE DIAGNOSIS: Acute cholecystitis. POSTOPERATIVE DIAGNOSIS: Acute cholecystitis. PROCEDURE: Laparoscopic cholecystectomy. SURGEON: Derrick Guzman MD BLOCK HANDLER: Dr. Donald DAVIS BLOCK HANDLER: Saji. ANESTHESIA: General with endotracheal intubation. INTRAVENOUS FLUIDS: Crystalloids. ESTIMATED BLOOD LOSS: 50 mL. INTRAOPERATIVE FINDINGS: Acute cholecystitis. SPECIMEN: Gallbladder with stones. BRIEF HISTORY: The patient is a very pleasant 71-year-old female who presented to the hospital complaining of epigastric and right upper quadrant abdominal pain for the duration of 4 days prior to presenting to the hospital. Upon presentation to the hospital, patient was found to have elevated white blood cell count to 12 as well as the ultrasound and CAT scan findings suggestive of acute cholecystitis. All the risks and benefits of the procedure were explained to the patient and, with the patient having a full understanding of all the risks and benefits involved, informed consent was obtained and patient was taken to the operating room for above stated procedure. PROCEDURE: The patient was brought into the operating room and placed supine on the operating table. Bilateral Flowtron boots were applied to patient's lower extremities. After successful induction of anesthesia and successful endotracheal intubation by the anesthesia team, the patient's abdomen was prepped with ChloraPrep stick and draped in the standard surgical fashion. Prior to the beginning of the procedure, timeout was called in the room and everyone in the room was in agreement. Using 11 blade scalpel knife, an approximately 5 mm incision was made in the right side of the patient's abdomen. Subsequent to that, using a 5 mm Optiview Visiport, patient's abdomen was entered under direct visualization and pneumoperitoneum was achieved with good opening pressures. Once this was accomplished, a 5 mm 0-degree scope was introduced into the patient's abdomen and abdomen was inspected. There appeared to be some omental adhesions to the anterior abdominal wall; however, the area around the umbilicus was freed from the adhesions. So using an 11 blade scalpel knife, a 1 cm incision was made in a longitudinal fashion in the umbilicus, and subsequent to that the 11 mm trocar was introduced into the patient's abdomen. At that point in time, attention was turned to the subxiphoid area. Using the 11 blade scalpel knife, 5 mm incision was made in the transverse fashion, and subsequent to that another 5 mm trocar was introduced into the patient's abdomen. Then attention was turned to the right side of the patient's abdomen. Again, using 11 blade scalpel knife, a 5 mm incision was made in the transverse fashion, and subsequent to that another 5 mm trocar was introduced into the patient's abdomen. At that point in time, the gallbladder appeared to be extremely inflamed and tense so we made a decision to decompress the gallbladder with a Veress needle, and there appeared to be a hydrops of the gallbladder. Once the gallbladder was completely decompressed, it was grasped at the fundus and the Barrett's pouch and using [place] dissector, the cystic duct and cystic artery were dissected out and critical view of safety was achieved. At that point in time, cystic duct was clipped with 3 clips proximal and 1 distal and transected with laparoscopic scissor. Same thing was done for the cystic artery; it was clipped with 2 clips proximal and 1 distal and transected with laparoscopic scissor. There appeared to be a posterior branch of the cystic artery that was dissected out with [place] dissector and clipped with 2 clips proximal and 1 distal and transected with laparoscopic scissor. At that point in time, gallbladder was dissected off the gallbladder fossa using hook electrical cautery. Once the gallbladder was completely freed up from the gallbladder fossa, EndoCatch bag was introduced into the patient's abdomen and gallbladder was placed inside of the bag and the bag was closed. At that point in time, gallbladder fossa and the abdominal cavity were copiously irrigated with sterile saline and fluid was suctioned out. Hemostasis of the gallbladder fossa was achieved with hook electrical cautery. At that point in time, an 11 mm trocar together with EndoCatch bag and the gallbladder were removed from the patient's abdomen and passed off to the [facility] as a specimen. The fascial layer at the umbilical port site was closed with one interrupted 0 Vicryl suture on UR-5 needle in a [id number] fashion and one interrupted suture with 0 Vicryl on UR-5 needle. Once this was accomplished, the patient's abdomen was fully desufflated. The rest of the trocars were removed from the patient's abdomen and skin was closed with 4-0 Monocryl suture in a running subcuticular fashion. At the end of the procedure, incision sites were infiltrated with Marcaine anesthetic. The patient's abdomen was washed and dried, and Dermabond was applied to the incision sites. The patient was successfully extubated by the anesthesia team, transferred to the stretcher and taken to the recovery room in a stable condition. At the end of the procedure, all instrument counts, needles and sponges were correct. Derrick Guzman MD cc: [id number] TT: 10/16/2016 15:20:38 vandana EPPS
[2016-10-16] MEDS ORDERED: Piperacillin/Tazobact 3.375 gm Inj IVPB ONE (16:02)
[2016-10-17] MEDS: Albuterol-Ipratrop 3 mg / 0.5 (3 ml) UD IH SCH ×6 (00:55→19:41)
[2016-10-17] MEDS: methylPREDNISolone 40 MG in Sodium Chloride 0.9% 50 ML IVPB SCH ×4 (04:03→21:29)
[2016-10-17] MEDS: Piperacillin/Tazobact 3.375 GM in Sodium Chloride 0.9% 100 ML IVPB SCH ×4 (04:30→22:25)
[2016-10-17 06:54] LABS: BASO % 0.1 % (0.0-2.0); HEMATOCRIT 31.2 % (34.0-47.0); LYMPH # 0.3 K/uL (1.0-4.3); LYMPH % 3.3 % (20.0-40.0); MEAN CELL VOLUME 91.1 fl (81.0-99.0); MEAN CORPUSCULAR HEMOGLOBIN 30.9 pg (27.0-31.0); MEAN CORPUSCULAR HGB CONC 33.9 g/dL (33.0-37.0); MEAN PLATELET VOLUME 9.6 fl (7.2-11.7); MONO # 0.3 K/uL (0.0-0.8); MONO % 2.8 % (0.0-10.0); NEUT % 93.8 % (50.0-75.0); PLATELET COUNT 165 K/uL (130-400); RED CELL DISTRIBUTION WIDTH 13.8 % (11.5-14.5); WHITE BLOOD COUNT 10.6 K/uL (4.8-10.8)
[2016-10-17 07:01] LABS: ALKALINE PHOSPHATASE 81 U/L (38-126); ALT/SGPT 38 U/L (9-52); AST/SGOT 33 U/L (14-36); BILIRUBIN,TOTAL 0.5 mg/dl (0.2-1.3); BLOOD UREA NITROGEN 9 mg/dl (7-17); CALCIUM 8.8 mg/dL (8.4-10.2); CARBON DIOXIDE 18 mmol/L (22-30); CHLORIDE 113 mmol/L (98-107); GFR AFRICAN-AMERICAN > 60; GLUCOSE,RANDOM 142 mg/dL (65-105); POTASSIUM 3.4 MMOL/L (3.6-5.0); SODIUM 144 mmol/l (132-148); TOTAL PROTEIN 5.8 G/DL (6.3-8.2)
--- NOTE | 2016-10-17 07:49 | CP.PCM.PN ---
<Hipolito Mejia - Last Filed: 10/17/16 07:54> Subjective - Date & Time of Evaluation Date of Evaluation: 10/17/16 Time of Evaluation: 07:30 - Subjective Subjective: General Surgery - Dr. Guzman 71yo F 1 day s/p cholecystectomy S&E at bedside. Pt has ambominal pain localizes at surgical incision sites. Pt is able to ambulate is passing gas, and tolerating diet. Pt denies overnight acute events and deneis overnight f/c/n /v/cp/sob. Objective - Vital Signs/Intake and Output Vital Signs (last 24 hours): Temp Pulse Resp BP Pulse Ox 98.4 F 79 20 108/64 98 10/17/16 07:36 10/17/16 07:36 10/17/16 07:36 10/17/16 07:36 10/17/16 07:36 - Medications Medications: Current Medications Albuterol/Ipratropium (Duoneb 3 Mg/0.5 Mg (3 Ml) Ud) 3 ml IH RQ4 [facility] Last Admin: 10/17/16 05:03 Dose: 3 ml Hydromorphone HCl (Dilaudid) 0.5 mg IVP Q15M PRN PRN Reason: Pain, moderate (4-7) Stop: 10/17/16 14:35 Last Admin: 10/16/16 15:00 Dose: 0.5 mg Hydromorphone HCl (Dilaudid) 0.5 mg IVP Q3H PRN PRN Reason: Pain, moderate (4-7) Last Admin: 10/16/16 19:56 Dose: 0.5 mg Piperacillin Sod/Tazobactam (Sod 3.375 gm/ Sodium Chloride) 100 mls @ 100 mls/ hr IVPB Q6 [facility] Last Admin: 10/17/16 04:30 Dose: 100 mls/hr Methylprednisolone 40 mg/ (Sodium Chloride) 50 mls @ 100 mls/hr IVPB Q6 [facility] Last Admin: 10/17/16 04:03 Dose: 100 mls/hr Lactated Ringer's (Lactated Ringer's) 1,000 mls @ 75 mls/hr IV .[id number] [facility] Last Admin: 10/16/16 21:30 Dose: 75 mls/hr Ondansetron HCl (Zofran Inj) 4 mg IVP Q4 PRN PRN Reason: Nausea/Vomiting Last Admin: 10/16/16 08:53 Dose: 4 mg Oxycodone/Acetaminophen (Percocet 5/325 Mg Tab) 1 tab PO Q4 PRN PRN Reason: Pain, Mild (1-3) Stop: 10/19/16 14:20 Oxycodone/Acetaminophen (Percocet 5/325 Mg Tab) 2 tab PO Q4 PRN PRN Reason: Pain, moderate (4-7) Stop: 10/19/16 14:22 Pantoprazole Sodium (Protonix Inj) 40 mg IVP DAILY [facility] Last Admin: 10/16/16 08:33 Dose: 40 mg - Labs Labs: 10/17/16 06:25 10/17/16 06:25 PT 11.7 SECONDS (9.6-11.2) H 10/15/16 06:05 INR 1.13 (0.92-1.08) H 10/15/16 06:05 APTT 32.0 SECONDS (23.3-32.5) 10/15/16 06:05 - Constitutional Appears: Well, Non-toxic, No Acute Distress - Head Exam Head Exam: ATRAUMATIC, NORMAL INSPECTION - Eye Exam Eye Exam: EOMI, Normal appearance - Respiratory Exam Respiratory Exam: NORMAL BREATHING PATTERN. absent: Chest Wall Tenderness, Decreased Breath Sounds - GI/Abdominal Exam GI & Abdominal Exam: Distended, Tenderness (along incison sites. ). absent: Guarding Additional comments: Incision site are well coapted and absnet acute signs of infection - Extremities Exam Extremities Exam: Normal Inspection. absent: Calf Tenderness - Neurological Exam Neurological Exam: Alert, Awake, Oriented x3 - Psychiatric Exam Psychiatric exam: Normal Affect, Normal Mood - Skin Skin Exam: Intact, Normal Color, Warm Assessment and Plan - Assessment and Plan (Free Text) Assessment: 71 year old female POD#1 s/p laparoscopic cholecystectomy. Plan: Pt S&E. Labs and vitals reviewed. Advanced to Regular diet Analgesia Pt is stable for discharge from Gen Surg standpoint. To followup in office with Dr. Guzman for outpaitnet check within 1 weeks D/w Dr. Guzman <Derrick Guzman - Last Filed: 10/17/16 10:21> Subjective - Date & Time of Evaluation Time of Evaluation: 10:00 - Subjective Subjective: Patient was seen and examined at the bedside. Had some vomiting this morning, but states that feels better now. Objective - Vital Signs/Intake and Output Vital Signs (last 24 hours): Temp Pulse Resp BP Pulse Ox 98.4 F 79 20 108/64 98 10/17/16 07:36 10/17/16 07:36 10/17/16 07:36 10/17/16 07:36 10/17/16 09:44 - Medications Medications: Current Medications Albuterol/Ipratropium (Duoneb 3 Mg/0.5 Mg (3 Ml) Ud) 3 ml IH RQ4 [facility] Last Admin: 10/17/16 08:25 Dose: 3 ml Hydromorphone HCl (Dilaudid) 0.5 mg IVP Q15M PRN PRN Reason: Pain, moderate (4-7) Stop: 10/17/16 14:35 Last Admin: 10/16/16 15:00 Dose: 0.5 mg Hydromorphone HCl (Dilaudid) 0.5 mg IVP Q3H PRN PRN Reason: Pain, moderate (4-7) Last Admin: 10/16/16 19:56 Dose: 0.5 mg Piperacillin Sod/Tazobactam (Sod 3.375 gm/ Sodium Chloride) 100 mls @ 100 mls/ hr IVPB Q6 [facility] Last Admin: 10/17/16 04:30 Dose: 100 mls/hr Methylprednisolone 40 mg/ (Sodium Chloride) 50 mls @ 100 mls/hr IVPB Q6 [facility] Last Admin: 10/17/16 04:03 Dose: 100 mls/hr Lactated Ringer's (Lactated Ringer's) 1,000 mls @ 75 mls/hr IV .[id number] [facility] Last Admin: 10/16/16 21:30 Dose: 75 mls/hr Ondansetron HCl (Zofran Inj) 4 mg IVP Q4 PRN PRN Reason: Nausea/Vomiting Last Admin: 10/16/16 08:53 Dose: 4 mg Oxycodone/Acetaminophen (Percocet 5/325 Mg Tab) 1 tab PO Q4 PRN PRN Reason: Pain, Mild (1-3) Stop: 10/19/16 14:20 Oxycodone/Acetaminophen (Percocet 5/325 Mg Tab) 2 tab PO Q4 PRN PRN Reason: Pain, moderate (4-7) Stop: 10/19/16 14:22 Pantoprazole Sodium (Protonix Inj) 40 mg IVP DAILY [facility] Last Admin: 10/17/16 10:09 Dose: 40 mg Simethicone (Mylicon Chew Tab) 80 mg PO PCHS PRN PRN Reason: Flatulence - Labs Labs: 10/17/16 06:25 10/17/16 06:25 PT 11.7 SECONDS (9.6-11.2) H 10/15/16 06:05 INR 1.13 (0.92-1.08) H 10/15/16 06:05 APTT 32.0 SECONDS (23.3-32.5) 10/15/16 06:05 Assessment and Plan - Assessment and Plan (Free Text) Plan: - Trial of regular diet - pain control - repeat labs in am - Will follow
[2016-10-17] MEDS ORDERED: Potassium Chloride 20 mEq ER Tab PO ONE ×2 (09:00→18:49)
[2016-10-17] MEDS ORDERED: Simethicone 80 mg Chewtab PO PRN (09:02)
[2016-10-17] MEDS: Oxycodone/Acetaminophen 5/325 mg Tab PO PRN ×2 (09:16→17:09)
[2016-10-17 14:04] LABS: NEUTROPHIL 96 % (42-75); TOTAL CELLS COUNTED 100
--- NOTE | 2016-10-17 15:14 | CP.PCM.PN ---
Subjective - Date & Time of Evaluation Date of Evaluation: 10/17/16 Time of Evaluation: 12:15 - Subjective Subjective: F/U S/P Lap Dotty. Pt S/P Lap Dotty PO#1, c/o of nausea, post surgical pain incision area. Objective - Vital Signs/Intake and Output Vital Signs (last 24 hours): Temp Pulse Resp BP Pulse Ox 98.4 F 79 20 108/64 98 10/17/16 07:36 10/17/16 07:36 10/17/16 07:36 10/17/16 07:36 10/17/16 09:44 - Medications Medications: Current Medications Albuterol/Ipratropium (Duoneb 3 Mg/0.5 Mg (3 Ml) Ud) 3 ml IH RQ4 [facility] Last Admin: 10/17/16 11:36 Dose: 3 ml Hydromorphone HCl (Dilaudid) 0.5 mg IVP Q3H PRN PRN Reason: Pain, moderate (4-7) Last Admin: 10/16/16 19:56 Dose: 0.5 mg Piperacillin Sod/Tazobactam (Sod 3.375 gm/ Sodium Chloride) 100 mls @ 100 mls/ hr IVPB Q6 [facility] Last Admin: 10/17/16 10:19 Dose: 100 mls/hr Methylprednisolone 40 mg/ (Sodium Chloride) 50 mls @ 100 mls/hr IVPB Q6 [facility] Last Admin: 10/17/16 11:35 Dose: 100 mls/hr Lactated Ringer's (Lactated Ringer's) 1,000 mls @ 75 mls/hr IV .[id number] [facility] Last Admin: 10/16/16 21:30 Dose: 75 mls/hr Ondansetron HCl (Zofran Inj) 4 mg IVP Q4 PRN PRN Reason: Nausea/Vomiting Last Admin: 10/17/16 15:05 Dose: 4 mg Oxycodone/Acetaminophen (Percocet 5/325 Mg Tab) 1 tab PO Q4 PRN PRN Reason: Pain, Mild (1-3) Stop: 10/19/16 14:20 Oxycodone/Acetaminophen (Percocet 5/325 Mg Tab) 2 tab PO Q4 PRN PRN Reason: Pain, moderate (4-7) Stop: 10/19/16 14:22 Pantoprazole Sodium (Protonix Inj) 40 mg IVP DAILY [facility] Last Admin: 10/17/16 10:09 Dose: 40 mg Simethicone (Mylicon Chew Tab) 80 mg PO HS PRN PRN Reason: Flatulence - Labs Labs: 10/17/16 06:25 10/17/16 06:25 PT 11.7 SECONDS (9.6-11.2) H 10/15/16 06:05 INR 1.13 (0.92-1.08) H 10/15/16 06:05 APTT 32.0 SECONDS (23.3-32.5) 10/15/16 06:05 - Constitutional Appears: No Acute Distress, Chronically Ill - Head Exam Head Exam: NORMAL INSPECTION - Eye Exam Eye Exam: PERRL - ENT Exam ENT Exam: Normal Oropharynx - Neck Exam Neck Exam: Normal Inspection - Respiratory Exam Respiratory Exam: Decreased Breath Sounds (at bases) Additional comments: L Thoracotomy healed scar - Cardiovascular Exam Cardiovascular Exam: REGULAR RHYTHM - GI/Abdominal Exam GI & Abdominal Exam: Guarding (LUQ), Tenderness (Incision area), Normal Bowel Sounds. absent: Firm, Rebound Additional comments: Healed lower midline old surgical scar - Extremities Exam Extremities Exam: Normal Inspection Additional comments: Healed L hip surgical scar. - Back Exam Back Exam: tenderness (L-S) - Neurological Exam Neurological Exam: Alert, Oriented x3. absent: Motor Sensory Deficit - Psychiatric Exam Psychiatric exam: Normal Mood - Skin Skin Exam: Warm Assessment and Plan (1) Status post laparoscopic cholecystectomy Status: Acute (2) Hx of cancer of lung Status: Chronic (3) COPD (chronic obstructive pulmonary disease) Status: Chronic (4) Chronic lumbar radiculopathy Status: Chronic - Assessment and Plan (Free Text) Plan: Trial of food liquid diet, continue Zostn, Dilaudid and rest of Tx.
[2016-10-18] MEDS: Albuterol-Ipratrop 3 mg / 0.5 (3 ml) UD IH SCH ×4 (00:54→11:14)
[2016-10-18] MEDS: methylPREDNISolone 40 MG in Sodium Chloride 0.9% 50 ML IVPB SCH ×2 (03:01→09:22)
[2016-10-18] MEDS: Piperacillin/Tazobact 3.375 GM in Sodium Chloride 0.9% 100 ML IVPB SCH ×2 (03:02→10:44)
[2016-10-18 07:27] VITALS: BP 118/63; PULSE 84; RESP 18; TEMP 98.7; O2SAT 95
[2016-10-18 07:52] LABS: BASO % 0.2 % (0.0-2.0); HEMATOCRIT 34.1 % (34.0-47.0); LYMPH # 0.6 K/uL (1.0-4.3); LYMPH % 6.2 % (20.0-40.0); MEAN CELL VOLUME 92.2 fl (81.0-99.0); MEAN CORPUSCULAR HEMOGLOBIN 30.1 pg (27.0-31.0); MEAN CORPUSCULAR HGB CONC 32.6 g/dL (33.0-37.0); MEAN PLATELET VOLUME 9.6 fl (7.2-11.7); MONO # 0.3 K/uL (0.0-0.8); MONO % 3.4 % (0.0-10.0); NEUT # 8.2 K/uL (1.8-7.0); NEUT % 90.2 % (50.0-75.0); PLATELET COUNT 194 K/uL (130-400); WHITE BLOOD COUNT 9.1 K/uL (4.8-10.8)
[2016-10-18 08:21] LABS: ALKALINE PHOSPHATASE 85 U/L (38-126); ALT/SGPT 44 U/L (9-52); AST/SGOT 38 U/L (14-36); BILIRUBIN,TOTAL 0.4 mg/dl (0.2-1.3); BLOOD UREA NITROGEN 8 mg/dl (7-17); CALCIUM 9.4 mg/dL (8.4-10.2); CARBON DIOXIDE 20 mmol/L (22-30); CHLORIDE 108 mmol/L (98-107); GFR AFRICAN-AMERICAN > 60; GLUCOSE,RANDOM 137 mg/dL (65-105); POTASSIUM 3.2 MMOL/L (3.6-5.0); SODIUM 143 mmol/l (132-148); TOTAL PROTEIN 6.5 G/DL (6.3-8.2)
[2016-10-18] MEDS ORDERED: Pantoprazole 40 mg EC Tab PO SCH (09:00)
[2016-10-18] MEDS ORDERED: Enoxaparin 40 mg Syringe SC SCH (09:00)
[2016-10-18 09:34] LABS: NEUTROPHIL 91 % (42-75); TOTAL CELLS COUNTED 100
[2016-10-18] MEDS ORDERED: Potassium Chloride 20 mEq ER Tab PO ONE ×2 (09:38→15:00)
--- NOTE | 2016-10-18 10:49 | CP.PCM.PN ---
<Oscar Curiel - Last Filed: 10/18/16 10:47> Subjective - Date & Time of Evaluation Date of Evaluation: 10/18/16 Time of Evaluation: 10:25 - Subjective Subjective: General Surgery Pt S&E, NAEO. Has some occasional nausea but medication relieves it. Tolerates liquids. Ambulating, using IS. Wants to go home. Objective - Vital Signs/Intake and Output Vital Signs (last 24 hours): Temp Pulse Resp BP Pulse Ox 98.7 F 84 18 118/63 95 10/18/16 07:26 10/18/16 07:26 10/18/16 07:26 10/18/16 07:26 10/18/16 07:26 - Medications Medications: Current Medications Albuterol/Ipratropium (Duoneb 3 Mg/0.5 Mg (3 Ml) Ud) 3 ml IH RQ4 [facility] Last Admin: 10/18/16 07:40 Dose: 3 ml Enoxaparin Sodium (Lovenox) 40 mg SC DAILY [facility] PRN Reason: Protocol Last Admin: 10/18/16 09:28 Dose: 40 mg Hydromorphone HCl (Dilaudid) 0.5 mg IVP Q3H PRN PRN Reason: Pain, moderate (4-7) Last Admin: 10/16/16 19:56 Dose: 0.5 mg Piperacillin Sod/Tazobactam (Sod 3.375 gm/ Sodium Chloride) 100 mls @ 100 mls/ hr IVPB Q6 [facility] Last Admin: 10/18/16 10:44 Dose: 100 mls/hr Methylprednisolone 40 mg/ (Sodium Chloride) 50 mls @ 100 mls/hr IVPB Q6 [facility] Last Admin: 10/18/16 09:22 Dose: 100 mls/hr Lactated Ringer's (Lactated Ringer's) 1,000 mls @ 75 mls/hr IV .[id number] [facility] Last Admin: 10/16/16 21:30 Dose: 75 mls/hr Ondansetron HCl (Zofran Inj) 4 mg IVP Q4 PRN PRN Reason: Nausea/Vomiting Last Admin: 10/18/16 10:46 Dose: 4 mg Oxycodone/Acetaminophen (Percocet 5/325 Mg Tab) 1 tab PO Q4 PRN PRN Reason: Pain, Mild (1-3) Stop: 10/19/16 14:20 Oxycodone/Acetaminophen (Percocet 5/325 Mg Tab) 2 tab PO Q4 PRN PRN Reason: Pain, moderate (4-7) Stop: 10/19/16 14:22 Last Admin: 10/17/16 17:09 Dose: 2 tab Pantoprazole Sodium (Protonix Ec Tab) 40 mg PO DAILY [facility] Last Admin: 10/18/16 09:21 Dose: 40 mg Simethicone (Mylicon Chew Tab) 80 mg PO PCHS PRN PRN Reason: Flatulence - Labs Labs: 10/18/16 07:00 10/18/16 07:00 PT 11.7 SECONDS (9.6-11.2) H 10/15/16 06:05 INR 1.13 (0.92-1.08) H 10/15/16 06:05 APTT 32.0 SECONDS (23.3-32.5) 10/15/16 06:05 - Constitutional Appears: Non-toxic, No Acute Distress - Head Exam Head Exam: ATRAUMATIC, NORMOCEPHALIC - Eye Exam Eye Exam: EOMI. absent: Scleral icterus - Respiratory Exam Respiratory Exam: NORMAL BREATHING PATTERN. absent: Respiratory Distress - GI/Abdominal Exam GI & Abdominal Exam: Soft, Tenderness (appropriately at incision sites). absent : Distended, Firm, Guarding, Rigid - Neurological Exam Neurological Exam: Alert, Awake - Skin Skin Exam: Dry, Warm Assessment and Plan - Assessment and Plan (Free Text) Assessment: 71F POD#2 s/p laparoscopic cholecystectomy. Plan: Repleting K Regular diet for lunch If tolerating, ok for DC from a surgical standpoint. Follow up in 1-2 weeks. Will D/W Dr. Megan Curiel PGY3 <Derrick Guzman - Last Filed: 10/18/16 14:13> Subjective - Subjective Subjective: Patient was seen and examined at the bedside. Agree with resident's note above Objective - Vital Signs/Intake and Output Vital Signs (last 24 hours): Temp Pulse Resp BP Pulse Ox 98.7 F 84 18 118/63 95 10/18/16 07:26 10/18/16 07:26 10/18/16 07:26 10/18/16 07:10/18/16 07:26 - Medications Medications: Current Medications Albuterol/Ipratropium (Duoneb 3 Mg/0.5 Mg (3 Ml) Ud) 3 ml IH RQ4 [facility] Last Admin: 10/18/16 11:14 Dose: 3 ml Enoxaparin Sodium (Lovenox) 40 mg SC DAILY [facility] PRN Reason: Protocol Last Admin: 10/18/16 09:28 Dose: 40 mg Hydromorphone HCl (Dilaudid) 0.5 mg IVP Q3H PRN PRN Reason: Pain, moderate (4-7) Last Admin: 10/16/16 19:56 Dose: 0.5 mg Piperacillin Sod/Tazobactam (Sod 3.375 gm/ Sodium Chloride) 100 mls @ 100 mls/ hr IVPB Q6 [facility] Last Admin: 10/18/16 10:44 Dose: 100 mls/hr Methylprednisolone 40 mg/ (Sodium Chloride) 50 mls @ 100 mls/hr IVPB Q6 [facility] Last Admin: 10/18/16 09:22 Dose: 100 mls/hr Lactated Ringer's (Lactated Ringer's) 1,000 mls @ 75 mls/hr IV .[id number] [facility] Last Admin: 10/16/16 21:30 Dose: 75 mls/hr Ondansetron HCl (Zofran Inj) 4 mg IVP Q4 PRN PRN Reason: Nausea/Vomiting Last Admin: 10/18/16 10:46 Dose: 4 mg Oxycodone/Acetaminophen (Percocet 5/325 Mg Tab) 1 tab PO Q4 PRN PRN Reason: Pain, Mild (1-3) Stop: 10/19/16 14:20 Oxycodone/Acetaminophen (Percocet 5/325 Mg Tab) 2 tab PO Q4 PRN PRN Reason: Pain, moderate (4-7) Stop: 10/19/16 14:22 Last Admin: 10/17/16 17:09 Dose: 2 tab Pantoprazole Sodium (Protonix Ec Tab) 40 mg PO DAILY [facility] Last Admin: 10/18/16 09:21 Dose: 40 mg Potassium Chloride (K-Dur 20 Meq Er Tab) 40 meq PO ONCE ONE Stop: 10/18/16 15:01 Last Admin: 10/18/16 13:11 Dose: 40 meq Simethicone (Mylicon Chew Tab) 80 mg PO HS PRN PRN Reason: Flatulence - Labs Labs: 10/18/16 07:00 10/18/16 07:00 PT 11.7 SECONDS (9.6-11.2) H 10/15/16 06:05 INR 1.13 (0.92-1.08) H 10/15/16 06:05 APTT 32.0 SECONDS (23.3-32.5) 10/15/16 06:05
--- NOTE | 2016-10-18 12:56 | CP.PCM.PN ---
Subjective - Date & Time of Evaluation Date of Evaluation: 10/18/16 Time of Evaluation: 10:15 - Subjective Subjective: F/U S/P Lap-Dotty, POD#2 Abdominal pain improved, nausea on and off. Objective - Vital Signs/Intake and Output Vital Signs (last 24 hours): Temp Pulse Resp BP Pulse Ox 98.7 F 84 18 118/63 95 10/18/16 07:26 10/18/16 07:26 10/18/16 07:26 10/18/16 07:26 10/18/16 07:26 - Medications Medications: Current Medications Albuterol/Ipratropium (Duoneb 3 Mg/0.5 Mg (3 Ml) Ud) 3 ml IH RQ4 [facility] Last Admin: 10/18/16 11:14 Dose: 3 ml Enoxaparin Sodium (Lovenox) 40 mg SC DAILY [facility] PRN Reason: Protocol Last Admin: 10/18/16 09:28 Dose: 40 mg Hydromorphone HCl (Dilaudid) 0.5 mg IVP Q3H PRN PRN Reason: Pain, moderate (4-7) Last Admin: 10/16/16 19:56 Dose: 0.5 mg Piperacillin Sod/Tazobactam (Sod 3.375 gm/ Sodium Chloride) 100 mls @ 100 mls/ hr IVPB Q6 [facility] Last Admin: 10/18/16 10:44 Dose: 100 mls/hr Methylprednisolone 40 mg/ (Sodium Chloride) 50 mls @ 100 mls/hr IVPB Q6 [facility] Last Admin: 10/18/16 09:22 Dose: 100 mls/hr Lactated Ringer's (Lactated Ringer's) 1,000 mls @ 75 mls/hr IV .[id number] [facility] Last Admin: 10/16/16 21:30 Dose: 75 mls/hr Ondansetron HCl (Zofran Inj) 4 mg IVP Q4 PRN PRN Reason: Nausea/Vomiting Last Admin: 10/18/16 10:46 Dose: 4 mg Oxycodone/Acetaminophen (Percocet 5/325 Mg Tab) 1 tab PO Q4 PRN PRN Reason: Pain, Mild (1-3) Stop: 10/19/16 14:20 Oxycodone/Acetaminophen (Percocet 5/325 Mg Tab) 2 tab PO Q4 PRN PRN Reason: Pain, moderate (4-7) Stop: 10/19/16 14:22 Last Admin: 10/17/16 17:09 Dose: 2 tab Pantoprazole Sodium (Protonix Ec Tab) 40 mg PO DAILY [facility] Last Admin: 10/18/16 09:21 Dose: 40 mg Potassium Chloride (K-Dur 20 Meq Er Tab) 40 meq PO ONCE ONE Stop: 10/18/16 15:01 Simethicone (Mylicon Chew Tab) 80 mg PO HS PRN PRN Reason: Flatulence - Labs Labs: 10/18/16 07:00 10/18/16 07:00 PT 11.7 SECONDS (9.6-11.2) H 10/15/16 06:05 INR 1.13 (0.92-1.08) H 10/15/16 06:05 APTT 32.0 SECONDS (23.3-32.5) 10/15/16 06:05 - Constitutional Appears: No Acute Distress, Chronically Ill - Head Exam Head Exam: NORMAL INSPECTION - Eye Exam Eye Exam: PERRL - ENT Exam ENT Exam: Normal Oropharynx - Neck Exam Neck Exam: Normal Inspection - Respiratory Exam Respiratory Exam: Decreased Breath Sounds (at bases) Additional comments: L Thoracotomy healed scar. - Cardiovascular Exam Cardiovascular Exam: REGULAR RHYTHM - GI/Abdominal Exam GI & Abdominal Exam: Guarding (LUQ), Tenderness (minimal RUQ post surgical tenderness), Normal Bowel Sounds. absent: Rebound Additional comments: Healed lower midline previous surgical scar - Extremities Exam Extremities Exam: Normal Inspection Additional comments: Healed L hip surgical scar. - Back Exam Back Exam: tenderness (L-S) - Neurological Exam Neurological Exam: Alert, Oriented x3. absent: Motor Sensory Deficit - Psychiatric Exam Psychiatric exam: Normal Mood - Skin Skin Exam: Warm Assessment and Plan (1) Status post laparoscopic cholecystectomy Status: Acute (2) Acute cholecystitis Status: Deleted (3) Hx of cancer of lung Status: Chronic (4) COPD (chronic obstructive pulmonary disease) Status: Chronic (5) Chronic lumbar radiculopathy Status: Chronic - Assessment and Plan (Free Text) Plan: S/P Lap Dotty POD#2 Lap, if tolerate regular diet, Pt improved and stable to be discharged today, see instruction medication sheet.
== END 2016-10-18 15:08 | disposition home or self-care (01) | DRG 418 ==
LOC: H.ER 14:01 → H.EROBSV 15:00 → OBSVTOIN 15:00 → H.ERHOLD 20:18 → H.MEDSURG1 21:52
PROVIDERS: ADMIT Internal Medicine Pulmonary Disease; ATTEND Internal Medicine Pulmonary Disease
PROC: 0FT44ZZ Resection of Gallbladder, Percutaneous Endoscopic Approach (ICD-10-PCS; principal; 2016-10-16 12:30)
DX: K80.00 Calculus of gallbladder with acute cholecystitis without obstruction (principal); K82.1 Hydrops of gallbladder; J44.9 Chronic obstructive pulmonary disease, unspecified; I10 Essential (primary) hypertension; F17.200 Nicotine dependence, unspecified, uncomplicated; M54.16 Radiculopathy, lumbar region; Z96.642 Presence of left artificial hip joint; Z85.118 Personal history of other malignant neoplasm of bronchus and lung; Z85.43 Personal history of malignant neoplasm of ovary; G89.29 Other chronic pain

== ENCOUNTER 2017-07-15 08:24 | Emergency (ER) | payer BC, MEDICARE ==
[2017-07-15 08:25] VITALS: BMI 23.1
[2017-07-15 09:04] VITALS: BP 132/78; PULSE 75; RESP 18; TEMP 97; O2SAT 99
[2017-07-15] MEDS ORDERED: Acetaminophen-Codeine 300/30 mg Tab PO STA (09:18)
--- NOTE | 2017-07-15 09:35 | ED PDOC ---
HPI: Back Time Seen by Provider: 07/15/17 09:13 Chief Complaint (Nursing): Back Pain Chief Complaint (Provider): Back Pain, Shoulder Pain History Per: Patient History/Exam Limitations: no limitations Onset/Duration Of Symptoms: Days (x 2 months) Current Symptoms Are (Timing): Still Present Additional Complaint(s): 72 year old female presents to the emergency department complaining of left upper back pain and left shoulder pain, ongoing for 2 months. Pain is described as constant, and worsens with arm movement. Not relieved with Tramadol at home. Denies associated cough, chest pain, or shortness of breath. PMD: Dr. Bladimir Levy Past Medical History Reviewed: Historical Data, Nursing Documentation, Vital Signs Vital Signs: Last Vital Signs Temp 97.0 F L 07/15/17 08:40 Pulse 75 07/15/17 08:40 Resp 18 07/15/17 08:40 BP 132/78 07/15/17 08:40 Pulse Ox 99 07/15/17 08:40 - Medical History PMH: Arthritis, Bronchitis, COPD, HTN, Malignancy (vaginal cancer, lung cancer) Denies: Diabetes, Hypercholesterolemia, Chronic Kidney Disease - Surgical History Other surgeries: lobectomy 5 yrs ago secondary to lung cancer - Family History Family History: States: Unknown Family Hx - Social History Current smoker - smoking cessation education provided: Yes Alcohol: None Drugs: Denies - Immunization History Hx Tetanus Toxoid Vaccination: No Hx Influenza Vaccination: No Hx Pneumococcal Vaccination: No - Home Medications Home Medications: Ambulatory Orders Medication Instructions Recorded Omeprazole 40 mg PO DAILY 02/18/17 Naproxen [Naprosyn] 500 mg PO BID PRN #15 tablet 07/15/17 - Allergies Allergies/Adverse Reactions: Allergies Allergy/AdvReac Type Severity Reaction Status Date / Time seasonal Allergy Mild CONGESTION Uncoded 07/15/17 08:59 Review of Systems ROS Statement: Except As Marked, All Systems Reviewed And Found Negative Cardiovascular: Negative for: Chest Pain Respiratory: Negative for: Cough, Shortness of Breath Musculoskeletal: Positive for: Shoulder Pain (left), Back Pain (left upper) Physical Exam - Reviewed Nursing Documentation Reviewed: Yes Vital Signs Reviewed: Yes - Physical Exam Appears: Positive for: Non-toxic, No Acute Distress Head Exam: Positive for: ATRAUMATIC, NORMAL INSPECTION, NORMOCEPHALIC Skin: Positive for: Normal Color, Warm, Dry Eye Exam: Positive for: EOMI, Normal appearance, PERRL Neck: Positive for: Normal, Painless ROM, Supple Cardiovascular/Chest: Positive for: Regular Rate, Rhythm. Negative for: Murmur Respiratory: Positive for: Normal Breath Sounds. Negative for: Accessory Muscle Use, Respiratory Distress Pulses-Radial (L): 2+ Pulses-Radial (R): 2+ Gastrointestinal/Abdominal: Positive for: Normal Exam, Soft. Negative for: Tenderness Back: Positive for: Other (Left paraspinal tenderness). Negative for: Vertebral Tenderness Extremity: Positive for: Normal ROM (with full ROM of left arm), Tenderness (to left upper back and left shoulder), Capillary Refill (< 2 sec). Negative for: Deformity, Other (lesions, vesicles, erythema, or induration) Neurologic/Psych: Positive for: Alert, Oriented (x3) - ECG O2 Sat by Pulse Oximetry: 99 (RA) Pulse Ox Interpretation: Normal Medical Decision Making Medical Decision Making: Initial Impression: Upper back/shoulder pain Time: 9:17 Initial Plan: --Tylenol/Codeine 1 tab PO --Chest x-ray --Left shoulder x-ray --Reevaluation Time: 11:07 CHEST X-RAY FINDINGS: LUNGS: No acute infiltrate identified bilaterally. Volume loss of the left lung is again appreciated with stable chronic fibrosis left apex and left infrahilar space once again. PLEURA: No significant pleural effusion identified. No pneumothorax apparent. CARDIOVASCULAR: Normal. OSSEOUS STRUCTURES: No significant abnormalities. VISUALIZED UPPER ABDOMEN: Surgical clips are noted in the interval of the right upper quadrant abdomen. OTHER FINDINGS: None. IMPRESSION: No acute infiltrate bilaterally. Left-sided pulmonary fibrotic changes it appears stable. Time: 11:08 Left Shoulder X-RAY: FINDINGS: BONES: No acute fracture or destructive bony lesion identified. Fibrocystic changes are seen at the left humeral head superolaterally. JOINTS: No subluxation or dislocation is identified. Degenerative changes seen at the acromioclavicular joint mildly. SOFT TISSUES: Normal. OTHER FINDINGS: None. IMPRESSION: No acute fracture or dislocation. Limited degenerative changes left AC joint. Time: 12:09 X-rays discussed with patient, findings reviewed in detail. Patient is medically stable for discharge home. Provided rx for Naprosyn. Patient advised to follow up with PMD for further evaluation. There is agreement to discharge plan. Return if symptoms persist or worsen. Scribe Attestation: Documented by Daphne Morales, acting as a scribe for Pat Cerrato MD Provider Scribe Attestation: All medical record entries made by the Scribe were at my direction and personally dictated by me. I have reviewed the chart and agree that the record accurately reflects my personal performance of the history, physical exam, medical decision making, and the department course for this patient. I have also personally directed, reviewed, and agree with the discharge instructions and disposition. Disposition - Clinical Impression Clinical Impression: Upper back pain on left side - Patient ED Disposition Is Patient to be Admitted: No Counseled Patient/Family Regarding: Studies Performed, Diagnosis, Need For Followup, Rx Given - Disposition Referrals: Bladimir Levy MD [Family Provider] - Disposition: Routine/Home Disposition Time: 12:09 Condition: STABLE Prescriptions: Naproxen [Naprosyn] 500 mg PO BID PRN #15 tablet PRN Reason: Pain, Moderate (4-7) Instructions: Back Pain (ED) Forms: [facility] (Ecuadorean) Print Language: BARBADIAN - POA Present On Arrival: None
[2017-07-15] MEDS ORDERED: Acetaminophen-Codeine 300/30 mg Tab ONE (09:44)
--- NOTE | 2017-07-15 11:08 | RAD ---
HISTORY: L upper back pain COMPARISON: Chest radiographs 10/15/2016 TECHNIQUE: Chest PA and lateral FINDINGS: LUNGS: No acute infiltrate identified bilaterally. Volume loss of the left lung is again appreciated with stable chronic fibrosis left apex and left infrahilar space once again. PLEURA: No significant pleural effusion identified. No pneumothorax apparent. CARDIOVASCULAR: Normal. OSSEOUS STRUCTURES: No significant abnormalities. VISUALIZED UPPER ABDOMEN: Surgical clips are noted in the interval of the right upper quadrant abdomen. OTHER FINDINGS: None. IMPRESSION: No acute infiltrate bilaterally. Left-sided pulmonary fibrotic changes it appears stable.
--- NOTE | 2017-07-15 11:10 | RAD ---
PROCEDURE: Radiographs of the Left Shoulder HISTORY: L shoulder pain COMPARISON: No prior. FINDINGS: BONES: No acute fracture or destructive bony lesion identified. Fibrocystic changes are seen at the left humeral head superolaterally. JOINTS: No subluxation or dislocation is identified. Degenerative changes seen at the acromioclavicular joint mildly. SOFT TISSUES: Normal. OTHER FINDINGS: None. IMPRESSION: No acute fracture or dislocation. Limited degenerative changes left AC joint.
== END 2017-07-15 12:16 | disposition home or self-care (01) ==
LOC: H.ER 08:24
DX: M54.9 Dorsalgia, unspecified (principal); M25.512 Pain in left shoulder; I10 Essential (primary) hypertension; Z85.118 Personal history of other malignant neoplasm of bronchus and lung; Z85.44 Personal history of malignant neoplasm of other female genital organs

== ENCOUNTER 2017-07-28 04:12 | Inpatient (IN) | payer BC, MEDICARE ==
[2017-07-28 04:12] VITALS: BMI 23.1
[2017-07-28 05:33] LABS: BASO % 0.8 % (0.0-2.0); EOS % 0.5 % (0.0-4.0); HEMOGLOBIN 13.4 g/dL (12.0-16.0); LYMPH % 18.8 % (20.0-40.0); MEAN CELL VOLUME 93.8 fl (81.0-99.0); MEAN CORPUSCULAR HEMOGLOBIN 30.9 pg (27.0-31.0); MEAN CORPUSCULAR HGB CONC 32.9 g/dL (33.0-37.0); MEAN PLATELET VOLUME 9.3 fl (7.2-11.7); MONO # 0.6 K/uL (0.0-0.8); MONO % 10.7 % (0.0-10.0); NEUT # 3.7 K/uL (1.8-7.0); NEUT % 69.2 % (50.0-75.0); RBC 4.33 Mil/uL (3.80-5.20); RED CELL DISTRIBUTION WIDTH 13.6 % (11.5-14.5); WHITE BLOOD COUNT 5.3 K/uL (4.8-10.8)
[2017-07-28] MEDS ORDERED: Albuterol-Ipratrop 3 mg / 0.5 (3 ml) UD INH STA (05:38)
[2017-07-28 05:40] LABS: CALCIUM 10.1 mg/dL (8.4-10.2); GFR AFRICAN-AMERICAN > 60; GFR NON-AFRICAN AMERICAN > 60
--- NOTE | 2017-07-28 05:56 | ED PDOC ---
HPI: General Adult Time Seen by Provider: 07/28/17 04:22 Chief Complaint (Nursing): Flu-like Symptoms Chief Complaint (Provider): Flu-like Symptoms History Per: Patient History/Exam Limitations: no limitations Current Symptoms Are (Timing): Still Present Additional Complaint(s): 72 y/o female presents to the ED complaining of cough, congestion, chest pain, generalized body aches, leg pain and fever since 2 week. Patient took tramadol for pain but then ran out and since then has not taken any other pain medications. Denies any further medical complaints. PMD: Bladimir Levy MD Past Medical History Vital Signs: Last Vital Signs Temp 98.4 F 07/28/17 20:01 Pulse 74 07/28/17 20:01 Resp 18 07/28/17 20:01 BP 107/67 07/28/17 20:01 Pulse Ox 99 07/28/17 20:01 - Medical History PMH: Arthritis, Bronchitis, COPD, HTN, Malignancy (vaginal cancer, lung cancer) Denies: Diabetes, Hypercholesterolemia, Chronic Kidney Disease - Family History Family History: States: Unknown Family Hx - Immunization History Hx Tetanus Toxoid Vaccination: No Hx Influenza Vaccination: No Hx Pneumococcal Vaccination: No - Home Medications Home Medications: Ambulatory Orders Medication Instructions Recorded traMADol [Ultram] 50 mg PO BID PRN 07/28/17 - Allergies Allergies/Adverse Reactions: Allergies Allergy/AdvReac Type Severity Reaction Status Date / Time seasonal Allergy Mild CONGESTION Uncoded 07/15/17 08:59 Review of Systems ROS Statement: Except As Marked, All Systems Reviewed And Found Negative (As per HPI, otherwise negative) Constitutional: Positive for: Fever, Other (generalized body ache) ENT: Positive for: Nose Congestion Cardiovascular: Positive for: Chest Pain Respiratory: Positive for: Cough Musculoskeletal: Positive for: Leg Pain Physical Exam - Reviewed Nursing Documentation Reviewed: Yes Vital Signs Reviewed: Yes - Physical Exam Appears: Positive for: Non-toxic, Uncomfortable Head Exam: Positive for: ATRAUMATIC, NORMAL INSPECTION, NORMOCEPHALIC Skin: Positive for: Normal Color, Warm, Dry Eye Exam: Positive for: Normal appearance, EOMI, PERRL ENT: Positive for: Normal ENT Inspection Neck: Positive for: Normal, Painless ROM, Supple Cardiovascular/Chest: Positive for: Regular Rate, Rhythm. Negative for: Murmur Respiratory: Positive for: Other (coarse breath sounds). Negative for: Accessory Muscle Use, Respiratory Distress Gastrointestinal/Abdominal: Positive for: Normal Exam, Soft. Negative for: Tenderness, Distended Back: Positive for: Normal Inspection. Negative for: L CVA Tenderness, R CVA Tenderness, Vertebral Tenderness Extremity: Positive for: Normal ROM. Negative for: Pedal Edema, Deformity, Swelling Neurologic/Psych: Positive for: Alert, Oriented (x3) - Laboratory Results Result Diagrams: 07/28/17 05:25 07/28/17 05:25 - ECG O2 Sat by Pulse Oximetry: 99 (RA) Pulse Ox Interpretation: Normal Medical Decision Making Medical Decision Making: Time: 05:02 Initial Impression: Chest pain, body ache, cough Differential Diagnosis including but not limited to COPD exacerbation, pneumonia , pneumothorax, pulmonary embolism Plan: EKG bMP Troponin I Chest x-ray Albuterol/Ipratropium 3ml INH Toradol 30mg IVP Blood culture Peak flow pre/post tx Reevaluation Scribe Attestation: Documented by Laura Paredes acting as a scribe for Arabella Vuong MD. Scribe Attestation: All medical record entries made by the Scribe were at my direction and personally dictated by me. I have reviewed the chart and agree that the record accurately reflects my personal performance of the history, physical exam, medical decision making, and the department course for this patient. I have also personally directed, reviewed, and agree with the discharge instructions and disposition. Disposition - Clinical Impression Clinical Impression: Chest pain - Patient ED Disposition Is Patient to be Admitted: No Doctor Will See Patient In The: Office Counseled Patient/Family Regarding: Studies Performed, Diagnosis, Need For Followup - Disposition Disposition Time: 06:50 Condition: FAIR - Pt Status Changed To: Hospital Disposition Of: Observation - POA Present On Arrival: None
[2017-07-28] MEDS ORDERED: Albuterol 0.083% Inhal Sol (2.5 mg/3 mL) UD ONE (06:11)
[2017-07-28 06:15] LABS: BLOOD UREA NITROGEN 11 mg/dl (7-17)
[2017-07-28 06:39] LABS: INR 1.1 (0.9-1.2); PARTIAL THROMBOPLASTIN TIME 27.8 Seconds (25.6-37.1)
[2017-07-28] MEDS ORDERED: Aspirin 325 mg EC Tablets PO ONE (06:54)
[2017-07-28] MEDS ORDERED: Albuterol 0.083% Inhal Sol (2.5 mg/3 mL) UD INH STA (06:57)
--- NOTE | 2017-07-28 09:49 | RAD ---
PROCEDURE: CHEST RADIOGRAPH, 1 VIEW HISTORY: chest pain COMPARISON: Chest radiograph dated 07/15/2017. FINDINGS: LUNGS: Clear. PLEURA: No pneumothorax or pleural fluid seen. CARDIOVASCULAR: Atherosclerotic aortic calcifications. Cardiomediastinal silhouette within normal limits. OSSEOUS STRUCTURES: Old left posterior lateral 5th rib fracture redemonstrated. Unchanged. VISUALIZED UPPER ABDOMEN: Right upper quadrant surgical clips redemonstrated. OTHER FINDINGS: None. IMPRESSION: No active disease.
--- NOTE | 2017-07-28 11:13 | CARD ---
APPROVED REPORT EKG Measurement Heart [id number] CO [id number] <Conclusion> Normal sinus rhythm Normal ECG
[2017-07-28] MEDS: MethylPREDNISolone 40 mg Vial IVP SCH ×2 (16:35→21:22)
[2017-07-28] MEDS: Sodium Chloride 0.9% 1,000 ML IV SCH (16:44)
--- NOTE | 2017-07-28 19:31 | CP.PCM.HP ---
History of Present Illness - History of Present Illness History of Present Illness: CC; Chest congestion. 72 y/o F, Hx Chronic L-S, Knees, L hip, Hx lung Ca with MARIBELL Lobectomy Tx with Chemo, COPD and other multiple chronic medical conditions. Pt was brought by EMS to [facility] for evaluation of chest congestion, onset 2 weeks [employer], Pt taking Tramadol with no relief. Pt c/o of intermittent cough, non productive, non bloody, associated to chest congestion, low grade fever (tactile while at home), body ache. Worsening symptoms: Sternal chest pain, aching, pressured type, moderate intensity 6:10, non radiating. Pt denied: Chills, abdominal pain, n/v/d, urinary symptoms, palpitations, numbness, syncope, LOC, sick contact, recent travel out of [facility]. CXR shows: No active disease. EKG: Normal sinus rhythm. Present on Admission - Present on Admission Any Indicators Present on Admission: No Review of Systems - Constitutional Constitutional: Fever, Weakness - EENT Eyes: Other (negative) Nose/Mouth/Throat: Other (negative) - Cardiovascular Cardiovascular: Chest Pain (sternal ) - Respiratory Respiratory: Cough, Chest Congestion - Gastrointestinal Gastrointestinal: Other (negative) - Genitourinary Genitourinary: Other (negative) - Musculoskeletal Musculoskeletal: Arthralgias - Integumentary Integumentary: Other (negative) - Neurological Neurological: Other (negative) - Psychiatric Psychiatric: Other (negative) - Endocrine Endocrine: Other (negative) - Hematologic/Lymphatic Hematologic: Other (negative) Past Patient History - Past Medical History & Family History Past Medical History?: Yes Pertinent Family History: Unknown - Past Social History Smoking Status: Former Smoker (Hx of heavy smoker.) Alcohol: None Drugs: Denies Home Situation {Lives}: With Family - CARDIAC Hx Cardiac Disorders: Yes Hx Hypercholesterolemia: No Hx Hypertension: Yes - PULMONARY Hx Respiratory Disorders: Yes Hx Bronchitis: Yes Hx Chronic Obstructive Pulmonary Disease (COPD): Yes Hx Lung Cancer: Yes (MARIBELL) - NEUROLOGICAL Hx Neurological Disorder: No - HEENT Hx HEENT Problems: Yes (Rhinitis) - RENAL Hx Chronic Kidney Disease: No - ENDOCRINE/METABOLIC Hx Endocrine Disorders: No Hx Diabetes Mellitus Type 2: No - HEMATOLOGICAL/ONCOLOGICAL Hx Blood Disorders: Yes Hx Cancer: Yes (lung, vaginal) - INTEGUMENTARY Hx Dermatological Problems: No - MUSCULOSKELETAL/RHEUMATOLOGICAL Hx Musculoskeletal Disorders: Yes Hx Arthritis: Yes Hx Back Pain: Yes Hx Falls: No Hx Osteoarthritis: Yes - GASTROINTESTINAL Hx Gastrointestinal Disorders: Yes Hx Gastroesophageal Reflux: Yes - GENITOURINARY/GYNECOLOGICAL Hx Genitourinary Disorders: Yes Hx Ovarian Cancer: Yes (RADIATION/CHEMO) - PSYCHIATRIC Hx Psychophysiologic Disorder: No Hx Substance Use: No - SURGICAL HISTORY Hx Surgeries: Yes Hx Hysterectomy: Yes Hx Pulmonary Surgery: Yes (left lungs sx removed) - ANESTHESIA Hx Anesthesia: Yes Hx Malignant Hyperthermia: No Meds Allergies/Adverse Reactions: Allergies Allergy/AdvReac Type Severity Reaction Status Date / Time seasonal Allergy Mild CONGESTION Uncoded 07/15/17 08:59 Physical Exam - Constitutional Appears: No Acute Distress - Head Exam Head Exam: NORMAL INSPECTION - Eye Exam Eye Exam: PERRL - ENT Exam ENT Exam: Normal Exam - Neck Exam Neck exam: Positive for: Normal Inspection - Respiratory Exam Respiratory Exam: Decreased Breath Sounds (at bases) - Cardiovascular Exam Cardiovascular Exam: REGULAR RHYTHM - GI/Abdominal Exam GI & Abdominal Exam: Normal Bowel Sounds, Soft Additional comments: Healed lower midline surgical scar. - Extremities Exam Extremities exam: Positive for: normal inspection Additional comments: Healed L hip surgical scar. - Back Exam Back exam: tenderness (mild L-S) - Neurological Exam Neurological exam: Alert, Oriented x3 Additional comments: No motor sensory deficit - Psychiatric Exam Psychiatric exam: Normal Mood - Skin Skin Exam: Warm Results - Vital Signs Recent Vital Signs: Last Vital Signs Temp 98.6 F 07/28/17 16:08 Pulse 64 07/28/17 16:08 Resp 18 07/28/17 16:08 BP 106/63 07/28/17 16:08 Pulse Ox 99 07/28/17 16:08 reviewed [email or web address] - Labs Result Diagrams: 07/28/17 05:25 07/28/17 05:25 Labs: Laboratory Results - last 24 hr 07/28/17 07/28/17 07/28/17 05:25 05:25 05:25 WBC 5.3 RBC 4.33 Hgb 13.4 Hct 40.6 MCV 93.8 MCH 30.9 MCHC 32.9 L RDW 13.6 Plt Count 220 MPV 9.3 Neut % (Auto) 69.2 Lymph % (Auto) 18.8 L [place] % (Auto) 10.7 H Eos % (Auto) 0.5 Baso % (Auto) 0.8 Neut # (Auto) 3.7 Lymph # (Auto) 1.0 [place] # (Auto) 0.6 Eos # (Auto) 0.0 Baso # (Auto) 0.0 PT INR APTT D-Dimer, Quantitative Sodium 141 Potassium 4.4 Chloride 103 Carbon Dioxide 27 Anion Gap 15 BUN 11 Creatinine 0.7 Est GFR ( Amer) > 60 Est GFR (Non-Af Amer) > 60 Random Glucose 114 H Calcium 10.1 Troponin I < 0.0120 Influenza Typ A,B (EIA) Negative for flu a/b 07/28/17 07/28/17 06:20 15:40 WBC RBC Hgb Hct MCV MCH MCHC RDW Plt Count MPV Neut % (Auto) Lymph % (Auto) [place] % (Auto) Eos % (Auto) Baso % (Auto) Neut # (Auto) Lymph # (Auto) [place] # (Auto) Eos # (Auto) Baso # (Auto) PT 12.0 INR 1.1 APTT 27.8 D-Dimer, Quantitative 208 Sodium Potassium Chloride Carbon Dioxide Anion Gap BUN Creatinine Est GFR ( Amer) Est GFR (Non-Af Amer) Random Glucose Calcium Troponin I < 0.0120 Influenza Typ A,B (EIA) reviewed J.P. - EKG Data EKG comments: reviewed J.P. - Imaging and Cardiology Chest x-ray Status: Report reviewed by me (Domingo) Assessment & Plan (1) COPD exacerbation Status: Acute Priority: High (2) Chest pain Status: Acute Priority: High - Assessment and Plan (Free Text) Plan: Serology (-) for influenza A-B, F/U Blood C-S, CT Chest, Echo, continue Solumedrol, Duoneb, Tylenol 650 and rest of medications, Cardiology Consult. - Date & Time Date: 07/28/17 Time: 15:30
[2017-07-28 21:10] LABS: SQUAMOUS EPITHIAL 4 /hpf (0-5); URINE BILIRUBIN NEGATIVE (NEGATIVE); URINE BLOOD NEGATIVE (NEGATIVE); URINE CLARITY CLOUDY (Clear); URINE COLOR YELLOW (YELLOW); URINE GLUCOSE (UA) NEG (Normal); URINE LEUKOCYTE ESTERASE NEG Leu/uL (Negative); URINE NITRATE NEGATIVE (NEGATIVE); URINE PROTEIN NEGATIVE (NEGATIVE); URINE UROBILINOGEN 0.2-1.0 mg/dL (0.2-1.0)
[2017-07-29] MEDS: MethylPREDNISolone 40 mg Vial IVP SCH ×3 (03:57→21:54)
[2017-07-29] MEDS: Alum-Mag Hydrox-Simethicone Susp (30 mL) PO SCH ×2 (05:58→10:45)
[2017-07-29] MEDS: Pantoprazole 40 mg EC Tab PO SCH ×2 (05:58→10:45)
[2017-07-29 06:05] LABS: BASO % 0.1 % (0.0-2.0); HEMOGLOBIN 12.4 g/dL (12.0-16.0); LYMPH # 0.6 K/uL (1.0-4.3); LYMPH % 9.5 % (20.0-40.0); MEAN CELL VOLUME 93.6 fl (81.0-99.0); MEAN CORPUSCULAR HEMOGLOBIN 30.5 pg (27.0-31.0); MEAN CORPUSCULAR HGB CONC 32.6 g/dL (33.0-37.0); MONO # 0.2 K/uL (0.0-0.8); MONO % 2.5 % (0.0-10.0); NEUT % 87.9 % (50.0-75.0); NRBC % 0.1 % (0.0-0.0); PLATELET COUNT 245 K/uL (130-400); RBC 4.06 Mil/uL (3.80-5.20); RED CELL DISTRIBUTION WIDTH 13.6 % (11.5-14.5); WHITE BLOOD COUNT 6.8 K/uL (4.8-10.8)
[2017-07-29 06:27] LABS: ALB/GLOB RATIO 1.2 (1.0-2.1); ALBUMIN 3.8 g/dL (3.5-5.0); ALT/SGPT 44 U/L (9-52); AST/SGOT 31 U/L (14-36); BLOOD UREA NITROGEN 14 mg/dl (7-17); CALCIUM 9.7 mg/dL (8.4-10.2); GFR AFRICAN-AMERICAN > 60; GFR NON-AFRICAN AMERICAN > 60
--- NOTE | 2017-07-29 07:41 | CP.PCM.CON ---
<Jerry Kern - Last Filed: 07/29/17 14:04> History of Present Illness - History of Present Illness History of Present Illness: Cardiology consult note for Dr. Kaden Kern DO, PGY - 1 Reason For Consult: Chest pain HPI: 72 F with past medical history of Lung cancer s/p MARIBELL lobectomy and Tx with Chemo, COPD, L hip injury, Osteoarthritis, presents with a one month history of generalized fatigue, body aches, subjective fevers and chills, and "chest congestion," making it difficult for her to take a deep breath without having some sternal chest pain (interpreted by myself as pleural chest pain). RN at bedside providing translation. Patient states that her body aches started getting progressively worse which is what caused her to come to the ED. Patient denies recent travel, sick contacts at home. Past Surgical History: Hysterectomy, MARIBELL lobectomy Past Medical History: Lung CA, COPD, Osteoarthritis Allergies: NKDA; Seasonal allergies Social History: Smoker - 1 ppd for many years; denies illicits; social alcohol Family History: Cancer Medications: See MAR Review of Systems: Constitutional: +Subjective fevers, generalized weakness, body aches; ENT: patient denies dysphagia, otalgia, hearing deficit, rhinorrhea Eyes: patient denies sudden loss of vision, diplopia, blurred vision MSK: patient denies muscle stiffness, joint pain, extremity cramping Cardio: +Pleural chest pain Pulm: patient denies cough, hemoptysis, wheeze Gastrointestinal: patient denies loss of appetite, pain, constipation, melena , nausea, vomiting, diarrhea Genitourinary: patient denies burning on urination, urinary frequency, hematuria, urinary urgency Neuro: patient denies paresis, paresthesia, dizziness, headache, numbness , tingling Derm: patient denies skin changes, lesions, nail changes Endo: patient denies intolerance to heat/cold, diaphoresis, night sweats, polydipsia Psych: patient denies anxiety, depression, mood changes Past Patient History - Past Medical History & Family History Past Medical History?: Yes - Past Social History Smoking Status: Former Smoker (Hx of heavy smoker.) Alcohol: None Drugs: Denies Home Situation {Lives}: With Family - CARDIAC Hx Cardiac Disorders: Yes Hx Hypercholesterolemia: No Hx Hypertension: Yes - PULMONARY Hx Respiratory Disorders: Yes Hx Bronchitis: Yes Hx Chronic Obstructive Pulmonary Disease (COPD): Yes Hx Lung Cancer: Yes (MARIBELL) - NEUROLOGICAL Hx Neurological Disorder: No - HEENT Hx HEENT Problems: Yes (Rhinitis) - RENAL Hx Chronic Kidney Disease: No - ENDOCRINE/METABOLIC Hx Endocrine Disorders: No Hx Diabetes Mellitus Type 2: No - HEMATOLOGICAL/ONCOLOGICAL Hx Blood Disorders: Yes Hx Cancer: Yes (lung, vaginal) - INTEGUMENTARY Hx Dermatological Problems: No - MUSCULOSKELETAL/RHEUMATOLOGICAL Hx Musculoskeletal Disorders: Yes Hx Arthritis: Yes Hx Back Pain: Yes Hx Falls: No Hx Osteoarthritis: Yes - GASTROINTESTINAL Hx Gastrointestinal Disorders: Yes Hx Gastroesophageal Reflux: Yes - GENITOURINARY/GYNECOLOGICAL Hx Genitourinary Disorders: Yes Hx Ovarian Cancer: Yes (RADIATION/CHEMO) - PSYCHIATRIC Hx Psychophysiologic Disorder: No Hx Substance Use: No - SURGICAL HISTORY Hx Surgeries: Yes Hx Hysterectomy: Yes Hx Pulmonary Surgery: Yes (left lungs sx removed) - ANESTHESIA Hx Anesthesia: Yes Hx Malignant Hyperthermia: No Meds Allergies/Adverse Reactions: Allergies Allergy/AdvReac Type Severity Reaction Status Date / Time seasonal Allergy Mild CONGESTION Uncoded 07/15/17 08:59 - Medications Medications: Current Medications Acetaminophen (Tylenol 325mg Tab) 650 mg PO Q4 PRN PRN Reason: Pain, Mild (1-3) Last Admin: 07/29/17 03:02 Dose: 650 mg Al Hydrox/Mg Hydrox/Simethicone (Maalox Plus 30 Ml) 30 ml PO TID [facility] Last Admin: 07/29/17 05:58 Dose: 30 ml Albuterol/Ipratropium (Duoneb 3 Mg/0.5 Mg (3 Ml) Ud) 3 ml INH RQ6 PRN PRN Reason: Shortness of Breath Sodium Chloride (Sodium Chloride 0.9%) 1,000 mls @ 60 mls/hr IV .[id number] [facility] Stop: 07/29/17 15:59 Last Admin: 07/28/17 16:44 Dose: 60 mls/hr Methylprednisolone (Solu-Medrol) 40 mg IVP Q6H [facility] Last Admin: 07/29/17 03:57 Dose: 40 mg Pantoprazole Sodium (Protonix Ec Tab) 40 mg PO DAILY [facility] Last Admin: 07/29/17 05:58 Dose: 40 mg Physical Exam - Additional Findings Additional findings: Physical Exam: Vital Signs as below Const'l: awake alert & oriented x 4, no acute distress Head/Neck: neck supple, no jvd, trachea midline, carotid midline, no cervical/head mass Eyes: pupils equally reactive to light and accommodation, nonicteric sclera, extraocular intact ENT: auditory acuity grossly intact, throat not congested, no nasal deformity Cardio: regular rate, regular rhythm, no murmurs rubs gallops, no carotid bruit, normal s1, s2 Pulm: no accessory muscle use, equal normal breath sounds bilaterally, clear to ausculation bilaterally Abd: soft non tender non-distended, normal bowel sounds x 4 quadrants, no palpable masses Derm: no rashes, no ulcers, no lesions Extr: no edema, no cyanosis, no calf tenderness, no lesions, no varicosities Neuro: cranial nerves II-XII grossly intact, upper extremity and~lower extremity 5/5 muscle strength bilaterally, no loss of sensation in upper extremities, lower extremities bilaterally and core Results - Vital Signs Recent Vital Signs: Last Vital Signs Temp 98.1 F 07/29/17 05:00 Pulse 69 07/29/17 05:00 Resp 18 07/29/17 05:00 BP 115/71 07/29/17 05:00 Pulse Ox 97 07/29/17 05:00 - Labs Result Diagrams: 07/29/17 05:25 07/29/17 05:25 Labs: Laboratory Results - last 24 hr 07/28/17 07/28/17 07/28/17 15:40 20:33 20:51 WBC RBC Hgb Hct MCV MCH MCHC RDW Plt Count MPV Neut % (Auto) Lymph % (Auto) [place] % (Auto) Eos % (Auto) Baso % (Auto) Neut # (Auto) Lymph # (Auto) [place] # (Auto) Eos # (Auto) Baso # (Auto) Sodium Potassium Chloride Carbon Dioxide Anion Gap BUN Creatinine Est GFR ( Amer) Est GFR (Non-Af Amer) Random Glucose Calcium Total Bilirubin AST ALT Alkaline Phosphatase Troponin I < 0.0120 < 0.0120 Total Protein Albumin Globulin Albumin/Globulin Ratio TSH 3rd Generation Urine Color Yellow Urine Clarity Cloudy Urine pH 6.0 Ur Specific [place] 1.018 Urine Protein Negative Urine Glucose (UA) Neg Urine Ketones Negative Urine Blood Negative Urine Nitrate Negative Urine Bilirubin Negative Urine Urobilinogen 0.2-1.0 Ur Leukocyte Esterase Neg Urine RBC (Auto) 3 Urine Microscopic WBC 2 Ur Squamous Epith Cells 4 07/29/17 07/29/17 05:25 05:25 WBC 6.8 RBC 4.06 Hgb 12.4 Hct 38.0 MCV 93.6 MCH 30.5 MCHC 32.6 L RDW 13.6 Plt Count 245 MPV 9.0 Neut % (Auto) 87.9 H Lymph % (Auto) 9.5 L [place] % (Auto) 2.5 Eos % (Auto) 0.0 Baso % (Auto) 0.1 Neut # (Auto) 6.0 Lymph # (Auto) 0.6 L [place] # (Auto) 0.2 Eos # (Auto) 0.0 Baso # (Auto) 0.0 Sodium 142 Potassium 4.0 Chloride 106 Carbon Dioxide 26 Anion Gap 14 BUN 14 Creatinine 0.7 Est GFR ( Amer) > 60 Est GFR (Non-Af Amer) > 60 Random Glucose 134 H Calcium 9.7 Total Bilirubin 0.5 AST 31 ALT 44 Alkaline Phosphatase 100 Troponin I Total Protein 6.9 Albumin 3.8 Globulin 3.1 Albumin/Globulin Ratio 1.2 TSH 3rd Generation 0.39 L Urine Color Urine Clarity Urine pH Ur Specific [place] Urine Protein Urine Glucose (UA) Urine Ketones Urine Blood Urine Nitrate Urine Bilirubin Urine Urobilinogen Ur Leukocyte Esterase Urine RBC (Auto) Urine Microscopic WBC Ur Squamous Epith Cells Assessment & Plan - Assessment and Plan (Free Text) Assessment: 72 year old female with multiple co-morbidities including lung cancer, COPD, and osteoarthritis, presenting with flu-like symptoms that have been going on for a month. Flu serology negative here, but not taken within 24 hours of symptom onset. With respect to patient's chest pain, troponins are negative X 3 and EKG shows NSR X 3. ECHO shows EF 65-70% with normal size LV, normal LV function, and trace TR. Chest pain likely 2/2 cough - 10 year ASCVD of 14.2% - Patient's last stress test was in 2013, showed normal study - Patient should have stress test once current symptoms resolve COPD Exacerbation - No indication of acute effusions or infiltrates on chest xray - Patient is satting fine on room air - Duonebs prn, Solumedrol 40 q6; No Antibiotics needed, mild exacerbation - ABG if patient starts to decompensate - Rest of management per primary Osteoarthritis - Per primary History of Lung Cancer - Per primary Dispo: No acute cardiac intervention needed. Per ACC/AHA guidelines, patient should have stress test once current symptoms resolve. <Donnell Alfonso - Last Filed: 07/31/17 00:55> Meds - Medications Medications: Current Medications Acetaminophen (Tylenol 325mg Tab) 650 mg PO Q4 PRN PRN Reason: Pain, Mild (1-3) Last Admin: 07/29/17 03:02 Dose: 650 mg Al Hydrox/Mg Hydrox/Simethicone (Maalox Plus 30 Ml) 30 ml PO TID [facility] Last Admin: 07/30/17 17:25 Dose: 30 ml Albuterol/Ipratropium (Duoneb 3 Mg/0.5 Mg (3 Ml) Ud) 3 ml INH RQ6 PRN PRN Reason: Shortness of Breath Last Admin: 07/30/17 07:58 Dose: 3 ml Albuterol/Ipratropium (Duoneb 3 Mg/0.5 Mg (3 Ml) Ud) 3 ml INH Q2 [facility] Last Admin: 07/30/17 23:41 Dose: 3 ml Enoxaparin Sodium (Lovenox) 40 mg SC DAILY [facility] PRN Reason: Protocol Last Admin: 07/30/17 09:36 Dose: 40 mg Ceftriaxone Sodium 1 gm/ (Sodium Chloride) 100 mls @ 100 mls/hr IVPB DAILY [facility] PRN Reason: Protocol Last Admin: 07/30/17 17:24 Dose: 100 mls/hr Lidocaine (Lidoderm) 1 ea TD DAILY [facility] Last Admin: 07/30/17 09:26 Dose: 1 ea Methylprednisolone (Solu-Medrol) 30 mg IVP Q12H [facility] Last Admin: 07/31/17 00:45 Dose: 30 mg Oxycodone HCl (Oxycontin Extended Release Tab) 30 mg PO Q12 [facility] Stop: 08/02/17 21:01 Last Admin: 07/30/17 20:32 Dose: 30 mg Pantoprazole Sodium (Protonix Ec Tab) 40 mg PO DAILY [facility] Last Admin: 07/30/17 09:27 Dose: 40 mg Results - Vital Signs Recent Vital Signs: Last Vital Signs Temp 98.6 F 07/31/17 00:05 Pulse 72 07/31/17 00:05 Resp 18 07/31/17 00:05 BP 104/55 L 07/31/17 00:05 Pulse Ox 95 07/31/17 00:05 - Labs Result Diagrams: 07/29/17 05:25 07/29/17 05:25 Labs: Laboratory Results - last 24 hr 07/30/17 07/30/17 10:09 10:09 Free T4 1.16 Thyroxine (T4) 10.9 Assessment & Plan (1) COPD exacerbation Status: Acute Priority: High (2) Chest pain Status: Acute Priority: High (3) Hx of cancer of lung Status: Chronic Priority: High Attending/Attestation - Attestation I have personally seen and examined this patient.: Yes I have fully participated in the care of the patient.: Yes I have reviewed all pertinent clinical information: Yes Notes (Text): 07/29/17 00:55 chest pain will need ischemic evaluation
[2017-07-29 08:52] LABS: LYMPHOCYTE 7 % (20-50); MONOCYTE 2 % (0-10); NEUTROPHIL 91 % (42-75); PLATELET ESTIMATE NORMAL (NORMAL); TOTAL CELLS COUNTED 100
[2017-07-29] MEDS: Sodium Chloride 0.9% 1,000 ML IV SCH (08:55)
--- NOTE | 2017-07-29 12:18 | CARD ---
APPROVED REPORT EXAM: Two-dimensional and M-mode echocardiogram with Doppler and color Doppler. Other Information Quality : GoodRhythm : NSR INDICATION Chest Pain 2D DIMENSIONS IVSd1.07 (0.7-1.1cm)LVDd3.45 (3.9-5.9cm) LVOT Diameter2.06 (1.8-2.4cm)PWd0.98 (0.7-1.1cm) IVSs1.34 (0.8-1.2cm)LVDs2.07 (2.5-4.0cm) FS (%) 40.1 %PWs1.06 (0.8-1.2cm) M-Mode DIMENSIONS Left Atrium (MM)3.42 (2.5-4.0cm)IVSd1.29 (0.7-1.1cm) Aortic Root2.96 (2.2-3.7cm)LVDd4.40 (4.0-5.6cm) Aortic Cusp Exc.2.03 (1.5-2.0cm)PWd0.75 (0.7-1.1cm) IVSs1.72 cmFS (%) 49 % LVDs2.24 (2.0-3.8cm)PWs1.62 cm Mitral Valve MV E Wvotgcir22.4cm/sMV DECEL [id number] A Rqdfuorh80.3cm/s MV MMT05pyB/A ratio0.9MVA (PHT)2.88cm2 TDI Lateral E' Peak V12.55cm/sMedial E' Peak V6.84cm/sE/Lateral E'5.5 E/Medial E'10.1 Pulmonary Valve PV Peak Vytiszrg733.6cm/s Tricuspid Valve TR Peak Hxljcsyl130aw/sRAP UCLLPJGS60dgMcGF Peak Gr.26mmHg [id number] LEFT VENTRICLE The left ventricle is normal size. The left ventricular function is normal. The left ventricular ejection fraction is within the normal range. The Ejection Fraction is 65-70%. There is normal LV segmental wall motion. The left ventricular diastolic function is normal. RIGHT VENTRICLE The right ventricle is normal size. The right ventricular systolic function is normal. ATRIA The left atrium size is normal. The right atrium size is normal. AORTIC VALVE The aortic valve is normal in structure. No aortic regurgitation is present. There is no aortic valvular stenosis. MITRAL VALVE The mitral valve is normal in structure. There is no mitral valve stenosis. There is no mitral valve regurgitation noted. TRICUSPID VALVE The tricuspid valve is normal in structure. There is trace tricuspid regurgitation. PULMONIC VALVE The pulmonary valve is normal in structure. There is no pulmonic valvular regurgitation. GREAT VESSELS The aortic root is normal in size. The IVC is normal in size and collapses >50% with inspiration. PERICARDIAL EFFUSION The pericardium appears normal. <Conclusion> The left ventricle is normal size. The left ventricular function is normal. The left ventricular ejection fraction is within the normal range. The Ejection Fraction is 65-70%. There is trace tricuspid regurgitation.
--- NOTE | 2017-07-29 12:19 | CARD ---
APPROVED REPORT EKG Measurement Heart [id number] AR [id number] <Conclusion> Normal sinus rhythm Normal ECG
--- NOTE | 2017-07-29 15:34 | CP.PCM.PN ---
Subjective - Date & Time of Evaluation Date of Evaluation: 07/29/17 Time of Evaluation: 11:20 - Subjective Subjective: F/U COPD Exacerbation pain L hemithorax , thoracic spine , L-S Spine , no Chest pain , Patient wants regular diet, f/u CTA Chest Objective - Vital Signs/Intake and Output Vital Signs (last 24 hours): Temp Pulse Resp BP Pulse Ox 98.1 F 76 18 116/72 96 07/29/17 09:00 07/29/17 09:00 07/29/17 09:00 07/29/17 09:00 07/29/17 09:00 Intake and Output: 07/29/17 07/29/17 06:59 18:59 Intake Total 720 Balance 720 - Medications Medications: Current Medications Acetaminophen (Tylenol 325mg Tab) 650 mg PO Q4 PRN PRN Reason: Pain, Mild (1-3) Last Admin: 07/29/17 03:02 Dose: 650 mg Al Hydrox/Mg Hydrox/Simethicone (Maalox Plus 30 Ml) 30 ml PO TID [facility] Last Admin: 07/29/17 10:45 Dose: Not Given Albuterol/Ipratropium (Duoneb 3 Mg/0.5 Mg (3 Ml) Ud) 3 ml INH RQ6 PRN PRN Reason: Shortness of Breath Sodium Chloride (Sodium Chloride 0.9%) 1,000 mls @ 60 mls/hr IV [id number] [facility] Stop: 07/29/17 15:59 Last Admin: 07/29/17 08:55 Dose: 60 mls/hr Methylprednisolone (Solu-Medrol) 30 mg IVP Q8H [facility] Pantoprazole Sodium (Protonix Ec Tab) 40 mg PO DAILY [facility] Last Admin: 07/29/17 10:45 Dose: Not Given - Labs Labs: 07/29/17 05:25 07/29/17 05:25 PT 12.0 Seconds (9.8-13.1) 07/28/17 06:20 INR 1.1 (0.9-1.2) 07/28/17 06:20 APTT 27.8 Seconds (25.6-37.1) 07/28/17 06:20 - Constitutional Appears: No Acute Distress - Head Exam Head Exam: NORMAL INSPECTION - Eye Exam Eye Exam: PERRL - ENT Exam ENT Exam: Normal Exam - Neck Exam Neck Exam: Normal Inspection - Respiratory Exam Respiratory Exam: Decreased Breath Sounds (at bases), Rhonchi (scattered) Additional comments: tenderness L hemithorax , healed L thoracotomy surgical scar - Cardiovascular Exam Cardiovascular Exam: REGULAR RHYTHM - GI/Abdominal Exam GI & Abdominal Exam: Soft, Normal Bowel Sounds Additional comments: healed lower midline surgical scar. - Extremities Exam Extremities Exam: Normal Inspection Additional comments: Healed L hip surgical scar - Back Exam Back Exam: tenderness (Thoracic , L-S spine) - Neurological Exam Neurological Exam: Alert, Oriented x3. absent: Motor Sensory Deficit - Psychiatric Exam Psychiatric exam: Normal Mood - Skin Skin Exam: Warm Assessment and Plan (1) COPD exacerbation Status: Acute (2) Chest pain Status: Acute - Assessment and Plan (Free Text) Plan: continue DuoNeb , Solu Medrol and rest of treatment
[2017-07-29] MEDS ORDERED: Iodixanol 320 MG/ML 100 ML BOTTLE IV ONE (16:38)
[2017-07-29] MEDS ORDERED: Sodium Chloride 0.9% 50 ML IV ONE (16:38)
--- NOTE | 2017-07-29 17:32 | CT ---
PROCEDURE: CT Chest with contrast (Pulmonary Angiogram) HISTORY: r/o PE COMPARISON: Comparison made with CT chest dated 10/15/2016. TECHNIQUE: Axial computed tomography images were obtained of the chest in the pulmonary arterial phase of enhancement. Coronal and sagittal reformatted images were created and reviewed. Intravenous contrast dose: Radiation dose: Total exam DLP = 319.51 mGy-cm. This CT exam was performed using one or more of the following dose reduction techniques: Automated exposure control, adjustment of the mA and/or kV according to patient size, and/or use of iterative reconstruction technique. FINDINGS: PULMONARY ARTERIES: Pulmonary trunk, right and left main, lobar, segmental and proximal subsegmental branches of the pulmonary arteries are well opacified with no filling defects seen to suggest acute pulmonary embolus. The pulmonary trunk measures approximately 2.6 cm. AORTA: Ascending thoracic aorta measures approximately 3.8 cm and descending thoracic aorta measures approximately 2.6 cm. LUNGS: Centrilobular emphysema seen to better advantage throughout the right lung. Small blebs and or paraseptal emphysematous changes also noted in the right lung apex. Small localized opacities seen in the right upper and lower lobes. Re- demonstrated is a soft tissue density in the left lung apex abutting the pleural surface with masslike appearance though this probably represents a chronic of post operative scarring and/or post treatment sequela. Linear atelectasis/ scarring also noted in the left lower lung field/lingular region extending to the pleural surface. There is volume loss of the left gabriel thorax as well. Thoracotomy defect left posterior 5th rib PLEURAL SPACES: As above. . No effusion or pneumothorax. HEART: Heart size within range of normal. No significant pericardial effusion. . LYMPH NODES: . . There appears to be small bilateral hilar lymph nodes nonspecific. BONES, CHEST WALL: Thoracotomy defect left posterior 5th rib. Old healed fracture deformity left posterolateral 6th rib. Mild multilevel degenerative spondylosis of the thoracic spine. No acute compression fractures no retropulsed fragments. OTHER FINDINGS: Unremarkable. IMPRESSION: No evidence of acute central pulmonary embolus. Left apical pleural thickening/ scarring on again noted. Linear scarring/atelectasis left lung base. Volume loss left gabriel thorax. Postoperative thoracotomy defect left 5th posterior rib with old fracture deformity left posterolateral 6th rib. Centrilobular emphysema right upper lobe predominance with multiple small right apical blebs and or paraseptal emphysematous changes. There are small reticular opacity seen in the right upper and lower lobes nonspecific.
[2017-07-29] MEDS: Albuterol-Ipratrop 3 mg / 0.5 (3 ml) UD INH PRN (19:47)
[2017-07-30] MEDS: MethylPREDNISolone 40 mg Vial IVP SCH ×2 (05:49→13:21)
[2017-07-30] MEDS: Albuterol-Ipratrop 3 mg / 0.5 (3 ml) UD INH PRN (07:58)
[2017-07-30] MEDS: Lidocaine 5% Patch TD SCH (09:26)
[2017-07-30] MEDS: Alum-Mag Hydrox-Simethicone Susp (30 mL) PO SCH ×3 (09:27→17:25)
[2017-07-30] MEDS: Pantoprazole 40 mg EC Tab PO SCH (09:27)
[2017-07-30] MEDS: Enoxaparin 40 mg Syringe SC SCH (09:36)
--- NOTE | 2017-07-30 09:46 | CP.PCM.PN ---
<Jerry Kern Uche - Last Filed: 07/30/17 10:07> Subjective - Date & Time of Evaluation Date of Evaluation: 07/30/17 Time of Evaluation: 09:34 - Subjective Subjective: Cardiology progress note Patient seen and examined at bedside. Patient still having bodyaches and URI symptoms. Admits to pleuritic chest pain. Patient feeling very short of breath. Breathing treatment ordered. Objective - Vital Signs/Intake and Output Vital Signs (last 24 hours): Temp Pulse Resp BP Pulse Ox 98.2 F 78 18 123/76 95 07/30/17 08:00 07/30/17 08:00 07/30/17 08:00 07/30/17 08:00 07/30/17 08:00 - Medications Medications: Current Medications Acetaminophen (Tylenol 325mg Tab) 650 mg PO Q4 PRN PRN Reason: Pain, Mild (1-3) Last Admin: 07/29/17 03:02 Dose: 650 mg Al Hydrox/Mg Hydrox/Simethicone (Maalox Plus 30 Ml) 30 ml PO TID [facility] Last Admin: 07/30/17 09:27 Dose: 30 ml Albuterol/Ipratropium (Duoneb 3 Mg/0.5 Mg (3 Ml) Ud) 3 ml INH RQ6 PRN PRN Reason: Shortness of Breath Last Admin: 07/30/17 07:58 Dose: 3 ml Enoxaparin Sodium (Lovenox) 40 mg SC DAILY [facility] PRN Reason: Protocol Lidocaine (Lidoderm) 1 ea TD DAILY [facility] Last Admin: 07/30/17 09:26 Dose: 1 ea Methylprednisolone (Solu-Medrol) 30 mg IVP Q8H [facility] Last Admin: 07/30/17 05:49 Dose: 30 mg Pantoprazole Sodium (Protonix Ec Tab) 40 mg PO DAILY [facility] Last Admin: 07/30/17 09:27 Dose: 40 mg - Labs Labs: 07/29/17 05:25 07/29/17 05:25 PT 12.0 Seconds (9.8-13.1) 07/28/17 06:20 INR 1.1 (0.9-1.2) 07/28/17 06:20 APTT 27.8 Seconds (25.6-37.1) 07/28/17 06:20 - Additional Findings Additional findings: Physical Exam: Vital Signs as below Const'l: awake alert & oriented x 4, no acute distress Head/Neck: neck supple, no jvd, trachea midline, carotid midline, no cervical/head mass Eyes: pupils equally reactive to light and accommodation, nonicteric sclera, extraocular intact ENT: auditory acuity grossly intact, throat not congested, no nasal deformity Cardio: regular rate, regular rhythm, no murmurs rubs gallops, no carotid bruit, normal s1, s2 Pulm: +Patient has severe rhonchi and wheezes difusely anteriorly and posteriorly; mild accessory muscle use, equal breath sounds bilaterally, Abd: soft non tender non-distended, normal bowel sounds x 4 quadrants, no palpable masses Derm: no rashes, no ulcers, no lesions Extr: no edema, no cyanosis, no calf tenderness, no lesions, no varicosities Neuro: cranial nerves II-XII grossly intact, upper extremity and~lower extremity 5/5 muscle strength bilaterally, no loss of sensation in upper extremities, lower extremities bilaterally Assessment and Plan - Assessment and Plan (Free Text) Assessment: 72 year old female with multiple co-morbidities including lung cancer, COPD, and osteoarthritis, presenting with flu-like symptoms that have been going on for a month. Flu serology negative here, but not taken within 24 hours of symptom onset. With respect to patient's chest pain, troponins are negative X 3 and EKG shows NSR X 3. ECHO shows EF 65-70% with normal size LV, normal LV function, and trace TR. Chest pain likely 2/2 cough - 10 year ASCVD of 14.2% - Patient's last stress test was in 2013, showed normal study - Patient should have stress test once current symptoms resolve COPD Exacerbation - No indication of acute effusions or infiltrates on chest xray - Patient is satting fine on room air - Duonebs prn, Solumedrol 40 q6; No Antibiotics needed, mild exacerbation - ABG if patient starts to decompensate - Rest of management per primary Osteoarthritis - Per primary History of Lung Cancer - Per primary Dispo: No acute cardiac intervention needed. Per ACC/AHA guidelines, patient should have stress test once current symptoms resolve. Patient can have this done in patient if she wishes or outpatient. <Donnell Alfonso - Last Filed: 07/31/17 00:56> Objective - Vital Signs/Intake and Output Vital Signs (last 24 hours): Temp Pulse Resp BP Pulse Ox 98.6 F 72 18 104/55 L 95 07/31/17 00:05 07/31/17 00:05 07/31/17 00:05 07/31/17 00:05 07/31/17 00:05 - Medications Medications: Current Medications Acetaminophen (Tylenol 325mg Tab) 650 mg PO Q4 PRN PRN Reason: Pain, Mild (1-3) Last Admin: 07/29/17 03:02 Dose: 650 mg Al Hydrox/Mg Hydrox/Simethicone (Maalox Plus 30 Ml) 30 ml PO TID [facility] Last Admin: 07/30/17 17:25 Dose: 30 ml Albuterol/Ipratropium (Duoneb 3 Mg/0.5 Mg (3 Ml) Ud) 3 ml INH RQ6 PRN PRN Reason: Shortness of Breath Last Admin: 07/30/17 07:58 Dose: 3 ml Albuterol/Ipratropium (Duoneb 3 Mg/0.5 Mg (3 Ml) Ud) 3 ml INH Q2 [facility] Last Admin: 07/30/17 23:41 Dose: 3 ml Enoxaparin Sodium (Lovenox) 40 mg SC DAILY [facility] PRN Reason: Protocol Last Admin: 07/30/17 09:36 Dose: 40 mg Ceftriaxone Sodium 1 gm/ (Sodium Chloride) 100 mls @ 100 mls/hr IVPB DAILY [facility] PRN Reason: Protocol Last Admin: 07/30/17 17:24 Dose: 100 mls/hr Lidocaine (Lidoderm) 1 ea TD DAILY [facility] Last Admin: 07/30/17 09:26 Dose: 1 ea Methylprednisolone (Solu-Medrol) 30 mg IVP Q12H [facility] Last Admin: 07/31/17 00:45 Dose: 30 mg Oxycodone HCl (Oxycontin Extended Release Tab) 30 mg PO Q12 [facility] Stop: 08/02/17 21:01 Last Admin: 07/30/17 20:32 Dose: 30 mg Pantoprazole Sodium (Protonix Ec Tab) 40 mg PO DAILY [facility] Last Admin: 07/30/17 09:27 Dose: 40 mg - Labs Labs: 07/29/17 05:25 07/29/17 05:25 PT 12.0 Seconds (9.8-13.1) 07/28/17 06:20 INR 1.1 (0.9-1.2) 07/28/17 06:20 APTT 27.8 Seconds (25.6-37.1) 07/28/17 06:20 Assessment and Plan (1) COPD exacerbation Status: Acute (2) Chest pain Status: Acute (3) Hx of cancer of lung Status: Chronic Attending/Attestation - Attestation I have personally seen and examined this patient.: Yes I have fully participated in the care of the patient.: Yes I have reviewed all pertinent clinical information, including history, physical exam and plan: Yes
[2017-07-30] MEDS ORDERED: Albuterol-Ipratrop 3 mg / 0.5 (3 ml) UD INH STA (10:14)
[2017-07-30] MEDS: Albuterol-Ipratrop 3 mg / 0.5 (3 ml) UD INH SCH ×7 (11:12→23:41)
[2017-07-30] MEDS ORDERED: Sodium Chloride 3% for Inhalation 4 ML VIAL.NEB IH PRN (13:32)
[2017-07-30] MEDS: oxyCODONE 10 mg ER Tab (oxyCONTIN) PO SCH (20:32)
[2017-07-31] MEDS: MethylPREDNISolone 40 mg Vial IVP SCH ×2 (00:45→12:53)
[2017-07-31] MEDS: Albuterol-Ipratrop 3 mg / 0.5 (3 ml) UD INH SCH ×10 (02:04→19:18)
[2017-07-31 06:46] LABS: HEMOGLOBIN 12.3 g/dL (12.0-16.0); MEAN CELL VOLUME 92.5 fl (81.0-99.0); MEAN CORPUSCULAR HEMOGLOBIN 30.7 pg (27.0-31.0); MEAN CORPUSCULAR HGB CONC 33.2 g/dL (33.0-37.0); RBC 4.01 Mil/uL (3.80-5.20); RED CELL DISTRIBUTION WIDTH 13.8 % (11.5-14.5); WHITE BLOOD COUNT 11.8 K/uL (4.8-10.8)
[2017-07-31] MEDS: Lidocaine 5% Patch TD SCH (08:51)
[2017-07-31] MEDS: oxyCODONE 10 mg ER Tab (oxyCONTIN) PO SCH ×2 (08:52→12:56)
[2017-07-31] MEDS: Alum-Mag Hydrox-Simethicone Susp (30 mL) PO SCH ×3 (08:52→16:27)
[2017-07-31] MEDS: Pantoprazole 40 mg EC Tab PO SCH (08:52)
[2017-07-31] MEDS: Enoxaparin 40 mg Syringe SC SCH (08:53)
--- NOTE | 2017-07-31 10:12 | CP.PCM.PN ---
<Jerry Kern Uche - Last Filed: 07/31/17 14:28> Subjective - Date & Time of Evaluation Date of Evaluation: 07/31/17 Time of Evaluation: 09:56 - Subjective Subjective: Cardiology progress note for Dr. Alfonso Patient seen and examined at bedside. Patient still states that she is having pleural chest pain. Her shortness of breath has improved with the added duoneb treatment I scheduled for her yesterday. She is ready for her stress test. Objective - Vital Signs/Intake and Output Vital Signs (last 24 hours): Temp Pulse Resp BP Pulse Ox 98.4 F 99 H 20 112/69 97 07/31/17 08:37 07/31/17 08:37 07/31/17 08:37 07/31/17 08:37 07/31/17 08:37 - Medications Medications: Current Medications Acetaminophen (Tylenol 325mg Tab) 650 mg PO Q4 PRN PRN Reason: Pain, Mild (1-3) Last Admin: 07/29/17 03:02 Dose: 650 mg Al Hydrox/Mg Hydrox/Simethicone (Maalox Plus 30 Ml) 30 ml PO TID [facility] Last Admin: 07/31/17 08:52 Dose: Not Given Albuterol/Ipratropium (Duoneb 3 Mg/0.5 Mg (3 Ml) Ud) 3 ml INH RQ6 PRN PRN Reason: Shortness of Breath Last Admin: 07/30/17 07:58 Dose: 3 ml Albuterol/Ipratropium (Duoneb 3 Mg/0.5 Mg (3 Ml) Ud) 3 ml INH Q2 [facility] Last Admin: 07/31/17 08:08 Dose: 3 ml Enoxaparin Sodium (Lovenox) 40 mg SC DAILY [facility] PRN Reason: Protocol Last Admin: 07/31/17 08:53 Dose: Not Given Ceftriaxone Sodium 1 gm/ (Sodium Chloride) 100 mls @ 100 mls/hr IVPB DAILY [facility] PRN Reason: Protocol Last Admin: 07/31/17 08:53 Dose: 100 mls/hr Lidocaine (Lidoderm) 1 ea TD DAILY [facility] Last Admin: 07/31/17 08:51 Dose: 1 ea Methylprednisolone (Solu-Medrol) 30 mg IVP Q12H [facility] Last Admin: 07/31/17 00:45 Dose: 30 mg Oxycodone HCl (Oxycontin Extended Release Tab) 30 mg PO Q12 [facility] Stop: 08/02/17 21:01 Last Admin: 07/31/17 08:52 Dose: Not Given Pantoprazole Sodium (Protonix Ec Tab) 40 mg PO DAILY [facility] Last Admin: 07/31/17 08:52 Dose: Not Given - Labs Labs: 07/31/17 05:30 07/29/17 05:25 PT 12.0 Seconds (9.8-13.1) 07/28/17 06:20 INR 1.1 (0.9-1.2) 07/28/17 06:20 APTT 27.8 Seconds (25.6-37.1) 07/28/17 06:20 - Additional Findings Additional findings: Physical Exam: Vital Signs as below Const'l: awake alert & oriented x 4, no acute distress Head/Neck: neck supple, no jvd, trachea midline, carotid midline, no cervical/head mass Eyes: pupils equally reactive to light and accommodation, nonicteric sclera, extraocular intact ENT: auditory acuity grossly intact, throat not congested, no nasal deformity Cardio: regular rate, regular rhythm, no murmurs rubs gallops, no carotid bruit, normal s1, s2 Pulm: +Patient has severe rhonchi and wheezes difusely anteriorly and posteriorly; mild accessory muscle use, equal breath sounds bilaterally, Abd: soft non tender non-distended, normal bowel sounds x 4 quadrants, no palpable masses Derm: no rashes, no ulcers, no lesions Extr: no edema, no cyanosis, no calf tenderness, no lesions, no varicosities Neuro: cranial nerves II-XII grossly intact, upper extremity and~lower extremity 5/5 muscle strength bilaterally, no loss of sensation in upper extremities, lower extremities bilaterally Assessment and Plan - Assessment and Plan (Free Text) Assessment: Assessment and Plan: 72 year old female with multiple co-morbidities including lung cancer, COPD, and osteoarthritis, presenting with flu-like symptoms that have been going on for a month. Flu serology negative here, but not taken within 24 hours of symptom onset. With respect to patient's chest pain, troponins are negative X 3 and EKG shows NSR X 3. ECHO shows EF 65-70% with normal size LV, normal LV function, and trace TR. On exam today, shortness of breath is better, but patient has tachycardia and mild leukocytosis. Given her recent viral syndrome , needs further investigation Chest pain likely 2/2 cough - 10 year ASCVD of 14.2% - Patient's last stress test was in 2013, showed normal study - Patient's stress test performed today SIRS Criteria - Patient has tachycardia > 90 (99bpm) - Patient had WBCs 11.7, no differential ordered, so I repeated with diff - now 13 with left shift - Rest of management per primary - Consider ordering blood cultures, urine cultures, sputum cultures COPD Exacerbation - No indication of acute effusions or infiltrates on chest xray - Patient is satting fine on room air - Duonebs prn, Solumedrol 40 q6; No Antibiotics needed, mild exacerbation - ABG if patient starts to decompensate - Rest of management per primary Osteoarthritis - Per primary History of Lung Cancer - Per primary Dispo: No acute cardiac intervention needed. Per ACC/AHA guidelines, patient had stress test as noted above. Consider ordering urine and blood cultures. <Donnell Alfonso - Last Filed: 07/31/17 17:40> Objective - Vital Signs/Intake and Output Vital Signs (last 24 hours): Temp Pulse Resp BP Pulse Ox 97.6 F 97 H 18 121/72 99 07/31/17 15:43 07/31/17 15:43 07/31/17 15:43 07/31/17 15:43 07/31/17 15:43 - Medications Medications: Current Medications Acetaminophen (Tylenol 325mg Tab) 650 mg PO Q4 PRN PRN Reason: Pain, Mild (1-3) Last Admin: 07/29/17 03:02 Dose: 650 mg Al Hydrox/Mg Hydrox/Simethicone (Maalox Plus 30 Ml) 30 ml PO TID [facility] Last Admin: 07/31/17 16:27 Dose: 30 ml Albuterol/Ipratropium (Duoneb 3 Mg/0.5 Mg (3 Ml) Ud) 3 ml INH RQ6 PRN PRN Reason: Shortness of Breath Last Admin: 07/30/17 07:58 Dose: 3 ml Albuterol/Ipratropium (Duoneb 3 Mg/0.5 Mg (3 Ml) Ud) 3 ml INH Q2 [facility] Last Admin: 07/31/17 15:41 Dose: 3 ml Enoxaparin Sodium (Lovenox) 40 mg SC DAILY [facility] PRN Reason: Protocol Last Admin: 07/31/17 08:53 Dose: Not Given Ceftriaxone Sodium 1 gm/ (Sodium Chloride) 100 mls @ 100 mls/hr IVPB DAILY [facility] PRN Reason: Protocol Last Admin: 07/31/17 08:53 Dose: 100 mls/hr Lidocaine (Lidoderm) 1 ea TD DAILY [facility] Last Admin: 07/31/17 08:51 Dose: 1 ea Methylprednisolone (Solu-Medrol) 30 mg IVP Q12H [facility] Last Admin: 07/31/17 12:53 Dose: 30 mg Oxycodone HCl (Oxycontin Extended Release Tab) 30 mg PO Q12 [facility] Stop: 08/02/17 21:01 Last Admin: 07/31/17 12:56 Dose: 30 mg Pantoprazole Sodium (Protonix Ec Tab) 40 mg PO DAILY [facility] Last Admin: 07/31/17 08:52 Dose: Not Given - Labs Labs: 07/31/17 13:02 07/29/17 05:25 PT 12.0 Seconds (9.8-13.1) 07/28/17 06:20 INR 1.1 (0.9-1.2) 07/28/17 06:20 APTT 27.8 Seconds (25.6-37.1) 07/28/17 06:20 Assessment and Plan (1) COPD exacerbation Status: Acute (2) Chest pain Status: Acute (3) Hx of cancer of lung Status: Chronic Attending/Attestation - Attestation I have personally seen and examined this patient.: Yes I have fully participated in the care of the patient.: Yes I have reviewed all pertinent clinical information, including history, physical exam and plan: Yes Notes (Text): 07/31/17 17:39 stress test done today shows no evidence of ischemia no further cardiac w/u needed f/u with PCP
--- NOTE | 2017-07-31 10:13 | CP.PCM.PN ---
Subjective - Date & Time of Evaluation Date of Evaluation: 07/30/17 (This note is for 07/30/17.) Time of Evaluation: 16:00 - Subjective Subjective: F/U COPD Exacerbation. Pt with no A/D, no SOB, no CP. Objective - Vital Signs/Intake and Output Vital Signs (last 24 hours): Temp Pulse Resp BP Pulse Ox 98.4 F 99 H 20 112/69 97 07/31/17 08:37 07/31/17 08:37 07/31/17 08:37 07/31/17 08:37 07/31/17 08:37 - Medications Medications: Current Medications Acetaminophen (Tylenol 325mg Tab) 650 mg PO Q4 PRN PRN Reason: Pain, Mild (1-3) Last Admin: 07/29/17 03:02 Dose: 650 mg Al Hydrox/Mg Hydrox/Simethicone (Maalox Plus 30 Ml) 30 ml PO TID [facility] Last Admin: 07/31/17 08:52 Dose: Not Given Albuterol/Ipratropium (Duoneb 3 Mg/0.5 Mg (3 Ml) Ud) 3 ml INH RQ6 PRN PRN Reason: Shortness of Breath Last Admin: 07/30/17 07:58 Dose: 3 ml Albuterol/Ipratropium (Duoneb 3 Mg/0.5 Mg (3 Ml) Ud) 3 ml INH Q2 [facility] Last Admin: 07/31/17 08:08 Dose: 3 ml Enoxaparin Sodium (Lovenox) 40 mg SC DAILY [facility] PRN Reason: Protocol Last Admin: 07/31/17 08:53 Dose: Not Given Ceftriaxone Sodium 1 gm/ (Sodium Chloride) 100 mls @ 100 mls/hr IVPB DAILY [facility] PRN Reason: Protocol Last Admin: 07/31/17 08:53 Dose: 100 mls/hr Lidocaine (Lidoderm) 1 ea TD DAILY [facility] Last Admin: 07/31/17 08:51 Dose: 1 ea Methylprednisolone (Solu-Medrol) 30 mg IVP Q12H [facility] Last Admin: 07/31/17 00:45 Dose: 30 mg Oxycodone HCl (Oxycontin Extended Release Tab) 30 mg PO Q12 [facility] Stop: 08/02/17 21:01 Last Admin: 07/31/17 08:52 Dose: Not Given Pantoprazole Sodium (Protonix Ec Tab) 40 mg PO DAILY [facility] Last Admin: 07/31/17 08:52 Dose: Not Given - Labs Labs: 07/31/17 05:30 07/29/17 05:25 PT 12.0 Seconds (9.8-13.1) 07/28/17 06:20 INR 1.1 (0.9-1.2) 07/28/17 06:20 APTT 27.8 Seconds (25.6-37.1) 07/28/17 06:20 - Constitutional Appears: No Acute Distress - Head Exam Head Exam: NORMAL INSPECTION - Eye Exam Eye Exam: PERRL - ENT Exam ENT Exam: Normal Exam - Neck Exam Neck Exam: Normal Inspection - Respiratory Exam Respiratory Exam: Decreased Breath Sounds (at bases), Rhonchi (scattered) Additional comments: tenderness L hemithorax, healed L Thoracotomy surgical scar. - Cardiovascular Exam Cardiovascular Exam: REGULAR RHYTHM - GI/Abdominal Exam GI & Abdominal Exam: Soft, Normal Bowel Sounds Additional comments: Healed lower midline surgical scar - Extremities Exam Additional comments: Healed L hip surgical scar. - Back Exam Back Exam: tenderness (thoracic, L-S) - Neurological Exam Neurological Exam: Alert, Oriented x3. absent: Motor Sensory Deficit - Psychiatric Exam Psychiatric exam: Normal Mood - Skin Skin Exam: Warm Assessment and Plan (1) COPD exacerbation Status: Acute (2) Chest pain Status: Acute - Assessment and Plan (Free Text) Plan: Continue Cipro, Duoneb, Solumedrol.
[2017-07-31] MEDS ORDERED: Aminophylline 25 mg/ml Inj ONE (12:04)
[2017-07-31 13:44] LABS: HEMOGLOBIN 12.2 g/dL (12.0-16.0); LYMPH # 1.1 K/uL (1.0-4.3); LYMPH % 7.9 % (20.0-40.0); MEAN CORPUSCULAR HEMOGLOBIN 30.4 pg (27.0-31.0); MEAN CORPUSCULAR HGB CONC 32.7 g/dL (33.0-37.0); MEAN PLATELET VOLUME 8.7 fl (7.2-11.7); MONO # 0.8 K/uL (0.0-0.8); MONO % 6.1 % (0.0-10.0); NEUT # 11.8 K/uL (1.8-7.0); NRBC % 0.1 % (0.0-0.0); RBC 3.99 Mil/uL (3.80-5.20); RED CELL DISTRIBUTION WIDTH 13.8 % (11.5-14.5); WHITE BLOOD COUNT 13.7 K/uL (4.8-10.8)
--- NOTE | 2017-07-31 16:45 | CP.PCM.PN ---
Subjective - Date & Time of Evaluation Date of Evaluation: 07/31/17 Time of Evaluation: 15:00 - Subjective Subjective: F/U COPD Exacerbation. C/O of scanty cough on and off, SOB, Thoracic, lower back and L hip pain, no relief with medications. Objective - Vital Signs/Intake and Output Vital Signs (last 24 hours): Temp Pulse Resp BP Pulse Ox 97.6 F 97 H 18 121/72 99 07/31/17 15:43 07/31/17 15:43 07/31/17 15:43 07/31/17 15:43 07/31/17 15:43 - Medications Medications: Current Medications Acetaminophen (Tylenol 325mg Tab) 650 mg PO Q4 PRN PRN Reason: Pain, Mild (1-3) Last Admin: 07/29/17 03:02 Dose: 650 mg Al Hydrox/Mg Hydrox/Simethicone (Maalox Plus 30 Ml) 30 ml PO TID [facility] Last Admin: 07/31/17 16:27 Dose: 30 ml Albuterol/Ipratropium (Duoneb 3 Mg/0.5 Mg (3 Ml) Ud) 3 ml INH RQ6 PRN PRN Reason: Shortness of Breath Last Admin: 07/30/17 07:58 Dose: 3 ml Albuterol/Ipratropium (Duoneb 3 Mg/0.5 Mg (3 Ml) Ud) 3 ml INH Q2 [facility] Last Admin: 07/31/17 15:41 Dose: 3 ml Enoxaparin Sodium (Lovenox) 40 mg SC DAILY [facility] PRN Reason: Protocol Last Admin: 07/31/17 08:53 Dose: Not Given Ceftriaxone Sodium 1 gm/ (Sodium Chloride) 100 mls @ 100 mls/hr IVPB DAILY [facility] PRN Reason: Protocol Last Admin: 07/31/17 08:53 Dose: 100 mls/hr Lidocaine (Lidoderm) 1 ea TD DAILY [facility] Last Admin: 07/31/17 08:51 Dose: 1 ea Methylprednisolone (Solu-Medrol) 30 mg IVP Q12H [facility] Last Admin: 07/31/17 12:53 Dose: 30 mg Oxycodone HCl (Oxycontin Extended Release Tab) 30 mg PO Q12 [facility] Stop: 08/02/17 21:01 Last Admin: 07/31/17 12:56 Dose: 30 mg Pantoprazole Sodium (Protonix Ec Tab) 40 mg PO DAILY [facility] Last Admin: 07/31/17 08:52 Dose: Not Given - Labs Labs: 07/31/17 13:02 07/29/17 05:25 PT 12.0 Seconds (9.8-13.1) 07/28/17 06:20 INR 1.1 (0.9-1.2) 07/28/17 06:20 APTT 27.8 Seconds (25.6-37.1) 07/28/17 06:20 - Constitutional Appears: No Acute Distress - Head Exam Head Exam: NORMAL INSPECTION - Eye Exam Eye Exam: PERRL - ENT Exam ENT Exam: Normal Exam - Neck Exam Neck Exam: Normal Inspection - Respiratory Exam Respiratory Exam: Decreased Breath Sounds (at bases), Wheezes Additional comments: Healed L Thoracotomy surgical scar. Tenderness L Hemithorax. - Cardiovascular Exam Cardiovascular Exam: REGULAR RHYTHM - GI/Abdominal Exam GI & Abdominal Exam: Soft, Normal Bowel Sounds Additional comments: Healed lower midline surgical scar - Extremities Exam Extremities Exam: Normal Inspection Additional comments: Healed L hip surgical sca. - Back Exam Back Exam: tenderness (Thoracic and L-S) - Neurological Exam Neurological Exam: Altered, Oriented x3. absent: Motor Sensory Deficit - Psychiatric Exam Psychiatric exam: Normal Mood - Skin Skin Exam: Warm Assessment and Plan (1) COPD exacerbation Status: Acute (2) Chest pain Status: Acute - Assessment and Plan (Free Text) Plan: Continue with Oxycodone, Lidoderm Ptch, Rocephine, Duoneb and rest of Tx.
--- NOTE | 2017-07-31 16:54 | CARD ---
APPROVED REPORT Protocol: LEXISCAN Test Type: Stress Nuclear Medications: Maalox, Albuerol, Lovenox, Lidoderm Medical History: COPD, Rhinitis, LUNG and Vaginal Ca. Arthriitis, BAck Pain. Osteoarthritis, RJeflux, Overian Cancer, Lung Surgery (removed), Smoker, Cholesterol, Target HR: 149 bpm Resting ECG: normal Resting Heart Rate: 92 bpm Resting Blood Pressure: 112/68mmHg submaximum (85%): 127 bpm PROCEDURE Pharmacologic stress testing was performed using 0.4mg per 5ml of regadenoson given intravenously over 7-10 seconds. POST EXERCISE Reason for Termination: completed protocol Target HR: No Max HR: 118 bpm 84% of Maximum Predicted HR: 149 bpm Exercise duration: 00:46 min:sec, 0 Stage Exercise capacity: 1.0METs Max Blood Pressure: 123/80mmHg Blood Pressure response to exercise: n/a Heart Rate response to exercise: n/a Chest Pain: No, none Angina index: 0 Arrhythmia: No, none ST Change: No, none Deviation: 0 mm EXAM: Myocardial Perfusion REST/STRESS Image QualityGood Imaging Protocol The imaging protocol used to acquire images was Rest Tc-99m/stress Tc-99m 1 day Rest Spect myocardial perfusion imaging was performed in supine position 60 minutes following the injection of 10 mCi of Tc-99 Myoview. Time of rest injection: 7:40 Time of rest imagin:42 At peak stress, the patient was injected intravenously with 30mCi of Tc-99 tetrofosmin after an infusion time of minutes and seconds. Time of stress injection: 12:15 Time of stress imagin:20 Gated Stress Spect was performed 120 minutes after intravenous Tc-99 Myoview injection. The images were gated to evaluate regional wall motion and calculate ventricular ejection fraction. NUCLEAR IMAGE INTERPRETATION Study quality was good. Left Ventricular size was Normal at Rest and Stress. The rest and stress images show normal perfusion, normal contraction and thickening. CONCLUSION 1. - No evidence of reversible ischemia 2. - Normal left ventricular ejection fraction Recommendation - Aggressive medical management and risk factor modification
[2017-08-01] MEDS: oxyCODONE 10 mg ER Tab (oxyCONTIN) PO SCH ×2 (00:02→09:42)
[2017-08-01] MEDS: MethylPREDNISolone 40 mg Vial IVP SCH ×2 (00:05→12:31)
[2017-08-01] MEDS: Albuterol-Ipratrop 3 mg / 0.5 (3 ml) UD INH SCH ×7 (00:40→14:06)
[2017-08-01 08:54] VITALS: RESP 20
[2017-08-01] MEDS: Lidocaine 5% Patch TD SCH (09:02)
[2017-08-01] MEDS: Pantoprazole 40 mg EC Tab PO SCH (09:03)
[2017-08-01] MEDS: Alum-Mag Hydrox-Simethicone Susp (30 mL) PO SCH ×2 (09:03→12:30)
[2017-08-01] MEDS: Enoxaparin 40 mg Syringe SC SCH (09:03)
[2017-08-01 12:57] VITALS: BP 127/73; PULSE 85; TEMP 98.3; O2SAT 98
--- NOTE | 2017-08-01 15:37 | CP.PCM.DIS ---
Provider - Provider Date of Admission: 07/29/17 14:20 Attending physician: Bladimir Levy MD Diagnosis - Discharge Diagnosis (1) COPD exacerbation Status: Acute Priority: High (2) Chest pain Status: Acute Priority: High Hospital Course - Lab Results Lab Results: Micro Results 07/28/17 05:19 Blood Blood Culture - Preliminary NO GROWTH AFTER 4 DAYS Most Recent Lab Values WBC 13.7 K/uL (4.8-10.8) H 07/31/17 13:02 RBC 3.99 Mil/uL (3.80-5.20) 07/31/17 13:02 Hgb 12.2 g/dL (12.0-16.0) 07/31/17 13:02 Hct 37.2 % (34.0-47.0) 07/31/17 13:02 MCV 93.0 fl (81.0-99.0) 07/31/17 13:02 MCH 30.4 pg (27.0-31.0) 07/31/17 13:02 MCHC 32.7 g/dL (33.0-37.0) L 07/31/17 13:02 RDW 13.8 % (11.5-14.5) 07/31/17 13:02 Plt Count 271 K/uL (130-400) 07/31/17 13:02 MPV 8.7 fl (7.2-11.7) 07/31/17 13:02 Neut % (Auto) 86.0 % (50.0-75.0) H 07/31/17 13:02 Lymph % (Auto) 7.9 % (20.0-40.0) L 07/31/17 13:02 [place] % (Auto) 6.1 % (0.0-10.0) 07/31/17 13:02 Eos % (Auto) 0.0 % (0.0-4.0) 07/31/17 13:02 Baso % (Auto) 0.0 % (0.0-2.0) 07/31/17 13:02 Neut # (Auto) 11.8 K/uL (1.8-7.0) H 07/31/17 13:02 Lymph # (Auto) 1.1 K/uL (1.0-4.3) 07/31/17 13:02 [place] # (Auto) 0.8 K/uL (0.0-0.8) 07/31/17 13:02 Eos # (Auto) 0.0 K/uL (0.0-0.7) 07/31/17 13:02 Baso # (Auto) 0.0 K/uL (0.0-0.2) 07/31/17 13:02 Neutrophils % (Manual) 91 % (42-75) H 07/29/17 05:25 Lymphocytes % (Manual) 7 % (20-50) L 07/29/17 05:25 Monocytes % (Manual) 2 % (0-10) 07/29/17 05:25 Platelet Estimate Normal (NORMAL) 07/29/17 05:25 RBC Morphology Normal (NORMAL) 07/29/17 05:25 PT 12.0 Seconds (9.8-13.1) 07/28/17 06:20 INR 1.1 (0.9-1.2) 07/28/17 06:20 APTT 27.8 Seconds (25.6-37.1) 07/28/17 06:20 D-Dimer, Quantitative 208 ng/mlDDU (0-230) 07/28/17 06:20 Sodium 142 mmol/l (132-148) 07/29/17 05:25 Potassium 4.0 MMOL/L (3.6-5.0) 07/29/17 05:25 Chloride 106 mmol/L (98-107) 07/29/17 05:25 Carbon Dioxide 26 mmol/L (22-30) 07/29/17 05:25 Anion Gap 14 (10-20) 07/29/17 05:25 BUN 14 mg/dl (7-17) 07/29/17 05:25 Creatinine 0.7 mg/dl (0.7-1.2) 07/29/17 05:25 Est GFR ( Amer) > 60 07/29/17 05:25 Est GFR (Non-Af Amer) > 60 07/29/17 05:25 Random Glucose 134 mg/dL (65-105) H 07/29/17 05:25 Hemoglobin A1c 6.1 % (4.2-6.5) 07/29/17 08:30 Calcium 9.7 mg/dL (8.4-10.2) 07/29/17 05:25 Total Bilirubin 0.5 mg/dl (0.2-1.3) 07/29/17 05:25 AST 31 U/L (14-36) 07/29/17 05:25 ALT 44 U/L (9-52) 07/29/17 05:25 Alkaline Phosphatase 100 U/L (38-126) 07/29/17 05:25 Troponin I < 0.0120 ng/mL (0.00-0.120) 07/28/17 20:33 Total Protein 6.9 G/DL (6.3-8.2) 07/29/17 05:25 Albumin 3.8 g/dL (3.5-5.0) 07/29/17 05:25 Globulin 3.1 gm/dL (2.2-3.9) 07/29/17 05:25 Albumin/Globulin Ratio 1.2 (1.0-2.1) 07/29/17 05:25 Procalcitonin < 0.05 NG/ML (0.19-0.49) L 07/31/17 18:14 Free T4 1.16 ng/dL (0.78-2.19) 07/30/17 10:09 Thyroxine (T4) 10.9 ug/dl (5.5-11.0) 07/30/17 10:09 TSH 3rd Generation 0.39 mIU/ML (0.46-4.68) L 07/29/17 05:25 Urine Color Yellow (YELLOW) 07/28/17 20:51 Urine Clarity Cloudy (Clear) 07/28/17 20:51 Urine pH 6.0 (5.0-8.0) 07/28/17 20:51 Ur Specific [place] 1.018 (1.003-1.030) 07/28/17 20:51 Urine Protein Negative mg/dL (NEGATIVE) 07/28/17 20:51 Urine Glucose (UA) Neg mg/dL (Normal) 07/28/17 20:51 Urine Ketones Negative mg/dL (NEGATIVE) 07/28/17 20:51 Urine Blood Negative (NEGATIVE) 07/28/17 20:51 Urine Nitrate Negative (NEGATIVE) 07/28/17 20:51 Urine Bilirubin Negative (NEGATIVE) 07/28/17 20:51 Urine Urobilinogen 0.2-1.0 mg/dL (0.2-1.0) 07/28/17 20:51 Ur Leukocyte Esterase Neg Claire/uL (Negative) 07/28/17 20:51 Urine RBC (Auto) 3 /hpf (0-3) 07/28/17 20:51 Urine Microscopic WBC 2 /hpf (0-5) 07/28/17 20:51 Ur Squamous Epith Cells 4 /hpf (0-5) 07/28/17 20:51 Influenza Typ A,B (EIA) Negative for flu a/b (NEGATIVE) 07/28/17 05:25 Discharge Exam - Head Exam Head Exam: NORMAL INSPECTION Discharge Plan - Discharge Medications Prescriptions: Lidocaine 5% [Lidoderm] 1 ea TD DAILY #30 patch oxyCODONE [oxyCONTIN Extended Release Tab] 30 mg PO Q12 #10 tab Pantoprazole [Protonix EC Tab] 40 mg PO DAILY #30 ect Prednisone [Ashley] 5 mg PO DAILY #56 tablet. Albuterol HFA [Ventolin HFA 90 mcg/actuation (8 g)] 2 puff IH [id number] PRN #1 puff PRN Reason: Wheezing - Follow Up Plan Condition: FAIR Disposition: HOME/ ROUTINE Instructions: Chest Pain (DC), COPD (Chronic Obstructive Pulmonary Disease) (DC ) Additional Instructions: pt. cleared for discharge to Home today by and Rx for meds provided pt. will f/u with PMD Referrals: Donnell Alfonso MD [Staff Provider] - Bladimir Levy MD [Staff Provider] -
--- NOTE | 2017-08-01 16:17 | CP.PCM.PN ---
Subjective - Date & Time of Evaluation Date of Evaluation: 08/01/17 Time of Evaluation: 09:00 - Subjective Subjective: Cardiology progress note Patient seen and examined at bedside. Offers no complaints of shortness of breath and chest pain. Patient will see Dr. Alfonso in outpatient clinic. Objective - Vital Signs/Intake and Output Vital Signs (last 24 hours): Temp Pulse Resp BP Pulse Ox 98.3 F 85 20 127/73 98 08/01/17 12:56 08/01/17 12:56 08/01/17 12:56 08/01/17 12:56 08/01/17 12:56 Intake and Output: 08/01/17 08/01/17 06:59 18:59 Intake Total 200 Balance 200 - Labs Labs: 07/31/17 13:02 07/29/17 05:25 PT 12.0 Seconds (9.8-13.1) 07/28/17 06:20 INR 1.1 (0.9-1.2) 07/28/17 06:20 APTT 27.8 Seconds (25.6-37.1) 07/28/17 06:20 - Additional Findings Additional findings: Physical Exam: Vital Signs as below Const'l: awake alert & oriented x 4, no acute distress Head/Neck: neck supple, no jvd, trachea midline, carotid midline, no cervical/head mass Eyes: pupils equally reactive to light and accommodation, nonicteric sclera, extraocular intact ENT: auditory acuity grossly intact, throat not congested, no nasal deformity Cardio: regular rate, regular rhythm, no murmurs rubs gallops, no carotid bruit, normal s1, s2 Pulm: +Patient has severe rhonchi and wheezes difusely anteriorly and posteriorly; mild accessory muscle use, equal breath sounds bilaterally, Abd: soft non tender non-distended, normal bowel sounds x 4 quadrants, no palpable masses Derm: no rashes, no ulcers, no lesions Extr: no edema, no cyanosis, no calf tenderness, no lesions, no varicosities Neuro: cranial nerves II-XII grossly intact, upper extremity and~lower extremity 5/5 muscle strength bilaterally, no loss of sensation in upper extremities, lower extremities bilaterally Assessment and Plan - Assessment and Plan (Free Text) Assessment: Assessment and Plan: 72 year old female with multiple co-morbidities including lung cancer, COPD, and osteoarthritis, presenting with flu-like symptoms that have been going on for a month. Flu serology negative here, but not taken within 24 hours of symptom onset. With respect to patient's chest pain, troponins are negative X 3 and EKG shows NSR X 3. ECHO shows EF 65-70% with normal size LV, normal LV function, and trace TR. On exam today, shortness of breath is better, but patient has tachycardia and mild leukocytosis. Given her recent viral syndrome , needs further investigation Chest pain likely 2/2 cough - 10 year ASCVD of 14.2% - Patient's last stress test was in 2013, showed normal study - Patient's stress test performed today SIRS Criteria - Patient has tachycardia > 90 (99bpm) - Patient had WBCs 11.7, no differential ordered, so I repeated with diff - now 13 with left shift - Rest of management per primary - Consider ordering blood cultures, urine cultures, sputum cultures COPD Exacerbation - No indication of acute effusions or infiltrates on chest xray - Patient is satting fine on room air - Duonebs prn, Solumedrol 40 q6; No Antibiotics needed, mild exacerbation - ABG if patient starts to decompensate - Rest of management per primary Osteoarthritis - Per primary History of Lung Cancer - Per primary Dispo: No acute cardiac intervention needed. Per ACC/AHA guidelines, patient had stress test as noted above. Consider ordering urine and blood cultures for her SIRS criteria. No further cardiac intervention needed
== END 2017-08-01 15:45 | disposition home health service (06) | DRG 192 ==
LOC: H.ER 04:12 → H.ERHOLD 06:53 → H.TEL 12:40 → OBSVTOIN 07-29 14:20
PROVIDERS: ADMIT Internal Medicine Pulmonary Disease; ATTEND Internal Medicine Pulmonary Disease
PROC: 3E0F73Z Introduction of Anti-inflammatory into Respiratory Tract, Via Natural or Artificial Opening (ICD-10-PCS; principal; 2017-07-29)
DX: J44.1 Chronic obstructive pulmonary disease with (acute) exacerbation (principal); D72.829 Elevated white blood cell count, unspecified; I10 Essential (primary) hypertension; I25.10 Atherosclerotic heart disease of native coronary artery without angina pectoris; K21.9 Gastro-esophageal reflux disease without esophagitis; M19.90 Unspecified osteoarthritis, unspecified site; R07.81 Pleurodynia; Z85.118 Personal history of other malignant neoplasm of bronchus and lung; Z85.43 Personal history of malignant neoplasm of ovary; Z85.44 Personal history of malignant neoplasm of other female genital organs; Z90.2 Acquired absence of lung [part of]; Z90.710 Acquired absence of both cervix and uterus; Z92.21 Personal history of antineoplastic chemotherapy; Z92.3 Personal history of irradiation; Z87.891 Personal history of nicotine dependence